=== PATIENT | female | born 1970 | race Caucasian/White ===

== ENCOUNTER → 2017-06-24 | Outpatient (REF) | payer BC | LOC: M LAB REF 16:18 | PROVIDERS: ATTEND Physician Assistant | DX: N39.0 Urinary tract infection, site not specified (principal) ==

== ENCOUNTER → 2017-12-19 | Outpatient (REF) | payer BC ==
[2017-12-19 12:17] LABS: INFLUENZA A AMPLIFICATION NEGATIVE (NEGATIVE); INFLUENZA B AMPLIFICATION NEGATIVE (NEGATIVE)
== END ==
LOC: M LAB REF 10:09
DX: Z11.59 Encounter for screening for other viral diseases (principal)
CPT/HCPCS: 87502

== ENCOUNTER 2018-03-04 12:28 | Emergency (ER) | payer BC | END 2018-03-04 14:21 | disposition home or self-care (01) | LOC: M ED 12:28 | DX: N76.4 Abscess of vulva (principal); Z98.890 Other specified postprocedural states; Z79.899 Other long term (current) drug therapy | CPT/HCPCS: 87210 ==

== ENCOUNTER 2020-09-27 14:01 | Emergency (ER) | payer BC, OTHER ==
[~2020-09-27] VITALS: Ht 152.4 cm; Wt 77.9 kg
[~2020-09-27 14:01] MED LIST: AUGM500T34 PO; BUPR300T92 PO; GABA-843 PO; TRAZ-252 PO
[2020-09-27] MEDS ORDERED: GABA-845 (14:13)
[2020-09-27] MEDS ORDERED: LAMO25TA4 (14:13)
[2020-09-27] MEDS ORDERED: BUPR150T3 (14:13)
[2020-09-27 15:49] LABS: BASO # 0.1 10^3/uL (0.0-0.2); BASO % 0.8 % (0.0-1.0); EOS # 0.1 10^3/uL (0.0-0.5); EOS % 1.3 % (0.0-3.0); HEMATOCRIT 43.4 % (36.0-47.0); LYMPH % 27.7 % (24.0-44.0); MEAN CORPUSCULAR HEMOGLOBIN 28.7 pg (27.0-33.0); MEAN CORPUSCULAR HGB CONC 32.3 g/dl (32.0-36.5); MEAN CORPUSCULAR VOLUME 89.1 fl (80.0-96.0); MONO # 0.5 10^3/uL (0.0-0.8); MONO % 6.5 % (0.0-5.0); NEUTROPHILS # 4.5 10^3/uL (1.5-8.5); NEUTROPHILS % 63.3 % (36.0-66.0); PLATELET COUNT, AUTOMATED 248 10^3/uL (150-450); RED BLOOD COUNT 4.87 10^6/uL (4.00-5.40); WHITE BLOOD COUNT 7.1 10^3/uL (4.0-10.0)
[2020-09-27 16:21] LABS: HCG, SERUM QUALITATIVE NEGATIVE (NEGATIVE)
[2020-09-27 16:22] LABS: BLOOD UREA NITROGEN 8 MG/DL (7-18); CALCIUM LEVEL 8.8 MG/DL (8.5-10.1); CARBON DIOXIDE LEVEL 31 MEQ/L (21-32); CHLORIDE LEVEL 106 MEQ/L (98-107); GLOMERULAR FILTRATION RATE > 60.0 (>58); GLUCOSE, FASTING 100 MG/DL (70-100); POTASSIUM SERUM 4.5 MEQ/L (3.5-5.1); SODIUM LEVEL 139 MEQ/L (136-145)
--- NOTE | 2020-09-27 17:07 | REP ---
INDICATION: abd pain w/ heavy vag bleeding r/o fibroid COMPARISON: None. TECHNIQUE: Transabdominal pelvic ultrasound followed by transvaginal examination for better evaluation of the endometrium and adnexa with color Doppler evaluation of the ovaries. FINDINGS: Bladder is unremarkable and measures . Heterogeneous anteverted myomatous uterus measures 10.0 x 5.6 x 6.1 cm and includes multiple vague fibroids including right lateral fibroid measuring 2.1 cm maximal diameter. The endometrial complex measures 7.5 mm thickness. Few nabothian cysts are identified in the cervix measuring up to 19 mm. Ovaries are not identified. Tubular structure in the right adnexa is poorly/incompletely evaluated but may represent hydrosalpinx. No pelvic fluid. IMPRESSION: 1. Heterogeneous myomatous uterus including 2.1 cm right lateral intramural fibroid. Nabothian cysts measuring up to 19 mm. 2. Possible hydrosalpinx. Ovaries not visualized. <Electronically signed by Alexandr Cano > 09/27/20 [id number]
[2020-09-27 17:26] VITALS: BP 116/71
--- NOTE | 2020-09-28 13:13 | ED PDOC ---
Post-Departure Follow-Up dr whitley faxed formal report of pelvic us for fu Danii Quevedo MD Sep 28, 2020 13:13
== END 2020-09-27 17:29 | disposition home or self-care (01) ==
LOC: M ED 14:01
DX: D25.1 Intramural leiomyoma of uterus (principal); N88.8 Other specified noninflammatory disorders of cervix uteri; F31.9 Bipolar disorder, unspecified; F12.10 Cannabis abuse, uncomplicated

== ENCOUNTER → 2020-10-31 | Outpatient (CLI) | payer OTHER ==
[~2020-10-31] MED LIST changes: +BUPR150T4 PO; +GABA-282 PO; -GABA-843 PO; +GABA-845; +IBUP-1022 PO; +LAMO25TA4 PO; +OXYC1TAB23 PO
== END ==
LOC: M LABSMTC 12:45
PROVIDERS: ATTEND Anesthesiology
DX: Z01.812 Encounter for preprocedural laboratory examination (principal); Z20.822 Contact with and (suspected) exposure to COVID-19

== ENCOUNTER 2020-11-05 09:09 | Day surgery (SDC) | payer OTHER ==
[2020-11-05] VITALS (7 sets, daily range): BP systolic 107–123; BP diastolic 65–76
[~2020-11-05] VITALS: Ht 152.4 cm; Wt 71.2 kg
[~2020-11-05 09:09] MED LIST changes: -IBUP-1022 PO; +LR 1,000 ML IV ONE; -OXYC1TAB23 PO; +ceFAZolin SOD 2 GM in IV 1 EA IV ONE
--- OUTSIDE RECORDS SUMMARY | 2020-11-05 09:15 | CCD ---
Author Author [employer] Organization [employer] [facility] Address Unknown Phone Unavailable Care Team Providers Care Plate Take Out Worker Name Role Phone Noe Ruiz Unavailable PROBLEMS No Information ALLERGIES No Known Allergies ENCOUNTERS from 1970 to 2020-10-26 Encounter Location Date Provider Diagnosis [facility] [address] [place] [phone] Oct, Noe Ruiz IMMUNIZATIONS No Information SOCIAL HISTORY Tobacco Use: Social History Observation Description Date Details (start date - stop date) Never Smoker Sex Assigned At : Social History Observation Description Sex Assigned At Unknown Alcohol Screening: Question Answer Notes Did you have a drink containing alcohol in the past year? No Points 0 Interpretation Negative Tobacco Use: Question Answer Notes Are you a: never smoker REASON FOR REFERRAL No Information VITAL SIGNS No information MEDICATIONS Medication SIG (Take, Route, Frequency, Duration) Notes Start Da te End Date Status Gabapentin 400 MG 1 capsule Orally Once a day Active Lamictal 25 MG 1 tablet Orally Activ e Wellbutrin XL 150 MG 1 tablet in the morning Orally Once a day Active PROCEDURES No Information RESULTS No Results REASON FOR VISIT AUTHORIZATION MEDICAL (GENERAL) HISTORY Type Description Date Surgical History x3 Surgical History cholecystectomy Surgical History appendectomy Hospitalization History childbirth Hospitalization History Suicide attempt/ Impatient Mental he alth Goals Section No Information Health Concerns No Information MEDICAL EQUIPMENT No Information MENTAL STATUS No Information FUNCTIONAL STATUS No Information ASSESSMENTS No Information PLAN OF TREATMENT Next Appt Details Provider Name:Noe Ruiz 2020-10-29 03:40:00 PM, [address] [place] [address], [phone], Provider Name:Noe Ruiz 2020-11-05 12:30:00 AM, [address] [place] [address], [phone], Provider Name:Noe Ruiz, 2020-11-20 10:40:00 AM, [address] [place], [phone], Provider Name:Noe Ruiz, 2020-12-17 11:40:00 AM, [address] [place], [phone], Insurance Providers Payer Name Payer Address Payer Phone Insured Name Patient Relati onship to Insured Coverage Start Date Coverage End Date [facility] CORPORATE CLAIMS DEPT [address] [facility] [phone] ALAINA LUCIA self
--- OUTSIDE RECORDS SUMMARY | 2020-11-05 09:15 | CCD ---
Author Author Real Myriam Ferrer Organization Unknown Address [address] [phone] Phone Care Team Providers Care Harness Builder Name Role Phone Carissa Noble PCP Allergies, Adverse Reactions, Alerts Concept Allergy Name Reaction Severity Onset Date Status Documentation Date Phone Number Npid Taxonomy Code Taxonomy Desc Author Last Name Author Fi rst Name Concept Type 722218 ziprasidone hcl Oversedation 11/26/2017 Active 11/25/19 18 [id number] Psychiatric/Mental Health Jaret Diaz RX NORM Problem List Concept Problem Description Status Start Date Created Date Resolv ed Date Snomed Code F33.2 Major Depressive Disorder, Recurrent episode, Severe A ctive 12/30/2018 12/30/2018 F31.81 Bipolar II Disorder Active 10/02/2015 10/02/2015 F41.1 Generalized Anxiety Disorder Active 03/02/2018 03/02/2018 Medications Rx Norm Medication Route Route Concept Start Date Stop Date Dosage Matheus quency Duration Formula Strength Dosage Form Dosage Form Code Dosage Description Medication Id Account Npid Author First Name Author Last Name Taxonomy Code Taxonomy Desc Phone Number [id number] gabapentin by mouth [id number] 07/24/2020 11/03/2020 three times a day 30 400 mg capsule 24242 [phone] Carissa Noble [id number] Nurse Practitioner [phone] [id number] Wellbutrin XL by mouth [id number] 07/24/2020 11/03/2020 every morni ng 30 150 mg tablet extended release 24 hr 17407 [id number] Carissa Noble [id number] Nurse Practitioner [phone] Social History Social History Element Description Concept Effective Date Smoking Status Unknown if ever smoked [id number] Immunizations No Data in Section Vital Signs Encounter Date Height Ins Weight Lbs Bmi Bp Systolic Bp Diastoli c Oxygen Saturation Respiration Rate Pulse Rate Body Temp Head Circumference Heigh t Lying 10/09/2020 0.00 0.00 0.00 0 0 0.00 0 0 0.00 0.0 0.0 0 Procedures Date Concept Id Description Targeted Site Concept Targeted Site Concept Type 10/09/2020 19527-19 [facility] Telemed E/M Lvl 3--Est pt CPT 10/09/2020 06945-61-[id number] Psychotherapy ADD ON - 30 Minutes CPT Patient has no history of implantable de vices Encounters Encounter Start Date End Date Encounter Type Description Diagnosis Di agnosis Desc Location Author First Name Author Last Name Npid Taxonomy Cod e Taxonomy Desc Phone Number Location Addr1 Location Addr2 Location [facility] Location Sta te Location Zip [id number] 10/09/2020 10/09/2020 73422-73 [facility] Telemed E/M Lvl 3--Est p t F33.2 Major depressv disorder, recurrentsevere w/o psych features [facility] Carissa [id number] Nurse Practitioner [phone] [address] [place] [phone] Plan of Treatment No Data in Section Lab Results No Data in Section Instructions No Data in Section Functional Cognitive Status No Data in Section Insurance Providers Insurance Id Policy Effective Date Policy Thru Date [employer] Michel patel [id number] 2019 [place] muñoz Plan
--- OUTSIDE RECORDS SUMMARY | 2020-11-05 09:15 | CCD ---
Author Author Real Myriam Hickmanricia Organization Unknown Address [address] [phone] Phone Care Team Providers Care Quality Intern Name Role Phone Carissa Noble PCP Allergies, Adverse Reactions, Alerts Concept Allergy Name Reaction Severity Onset Date Status Documentation Date Phone Number Npid Taxonomy Code Taxonomy Desc Author Last Name Author Fi rst Name Concept Type [id number] ziprasidone hcl Oversedation 11/26/2017 Active 11/25/19 18 [id number] Psychiatric/Mental Health Jaret Diaz RX NORM Problem [...] Name Taxonomy Code Taxonomy Desc Phone Number [phone] Lamictal by mouth [id number] 09/04/2020 10/04/2020 once a day 30 2 5 mg tablet 94369 [id number] [phone] Carissa Noble [id number] Nurse P jennifer [phone] 879803 gabapentin by mouth [id number] 07/24/2020 11/03/2020 three times a day 30 400 mg capsule 67484 [id number] Carissa Noble [id number] Nurse Practitioner [phone] [id number] Wellbutrin XL by mouth [id number] 07/24/2020 11/03/2020 every morni ng 30 150 mg tablet extended release 24 hr 29598 [id number] [id number] Carissa Noble [id number] Nurse Practitioner [phone] Social History Social History Element Description Concept Effective Date Smoking Status Unknown if ever smoked [id number] Immunizations No Data in Section Vital Signs Encounter Date Height Ins Weight Lbs Bmi Bp Systolic Bp Diastoli c Oxygen Saturation Respiration Rate Pulse Rate Body Temp Head Circumference Heigh t Lying 09/04/2020 0.00 0.00 0.00 0 0 0.00 0 0 0.00 0.0 0.0 0 Procedures Date Concept Id Description Targeted Site Concept Targeted Site Concept Type 09/04/2020 05152 E/M Level 3 - Established Patient CPT 09/04/2020 [id number]-[id number] Psychotherapy ADD ON - 30 Minutes CPT Patient has no history of implantable de vices Encounters Encounter Start Date End Date Encounter Type Description Diagnosis Di agnosis Desc Location Author First Name Author Last Name Npid Taxonomy Cod e Taxonomy Desc Phone Number Location Addr1 Location Addr2 Location City Location Sta te Location [facility] [id number] 09/04/2020 09/04/2020 99613 E/M Level 3 - Established Pa tient F33.2 Major depressv disorder, recurrentsevere w/o psych features [facility] [place] Carissa [phone] [id number] Nurse Practitioner [phone] [address] [phone] Plan of Treatment No Data in Section Lab Results No Data in Section Instructions No Data in Section Functional Cognitive Status No Data in Section Insurance Providers Insurance Id Policy Effective Date Policy Thru Date Company [employer] [id number] 2019 [place] muñoz Plan
--- OUTSIDE RECORDS SUMMARY | 2020-11-05 09:15 | CCD ---
Author Author [employer] [facility] Organization [employer] Address Unknown Phone Unavailable Care Team Providers Care Bank Sales And Service Manager Name Role Phone Noe Ruiz Unavailable PROBLEMS No Information ALLERGIES No Known Allergies ENCOUNTERS from 1972 to 2020-11-03 Encounter Location Date Provider Diagnosis [facility] [address] [place] [address] Oct, Noe Ruiz Irregular bleeding N 92.6 IMMUNIZATIONS No Information SOCIAL HISTORY Tobacco Use: [...] REASON FOR REFERRAL No Information VITAL SIGNS Weight 161.2 lbs Oct, Weight-kg 73.12 kg Oct, Height 60 in Oct, BMI 31.48 kg/m2 Oct, Blood pressure systolic 110 mm Hg Oct, Blood pressure diastolic 72 mm Hg Oct, MEDICATIONS Medication SIG (Take, Route, Frequency, Duration) Notes Start Da te End Date Status Wellbutrin XL 150 MG 1 tablet in the morning Orally Once a day Active Lamictal 25 MG 1 tablet Orally Activ e Gabapentin 400 MG 1 capsule Orally Once a day Active PROCEDURES No Information RESULTS No Results REASON FOR VISIT ER FU FOR FIBRIODS MEDICAL (GENERAL) HISTORY Type Description Date Surgical History x3 Surgical History cholecystectomy Surgical History appendectomy Hospitalization History childbirth Hospitalization History Suicide attempt/ Impatient Mental he alth Goals Section No Information Health Concerns No Information MEDICAL EQUIPMENT No Information MENTAL STATUS No Information FUNCTIONAL STATUS No Information ASSESSMENTS Encounter Date Diagnosis Assessment Notes Treatment Notes Treatm ent Clinical Notes Oct, Irregular bleeding (ICD-10 - N92.6) PLAN OF TREATMENT Next Appt Details Provider Name:Noe Ruiz, 2020-11-05 10:30:00 AM, [address] [place] [address], [phone], Provider Name:Noe Ruiz, 2020-11-20 10:40:00 AM, [address] [place] [address], [phone], Provider Name:Noe Ruiz, 2020-12-17 11:40:00 AM, [address] [place] [address], [phone], Insurance Providers Payer Name Payer Address Payer Phone Insured Name Patient Relati onship to Insured Coverage Start Date Coverage End Date [facility] CORPORATE CLAIMS DEPT [address] [facility] [phone] ALAINA LUCIA self
--- OUTSIDE RECORDS SUMMARY | 2020-11-05 09:15 | CCD ---
Author Author [employer] Organization [employer] Address Unknown Phone Unavailable Care Team Providers Care Autotransfusionist Name Role Phone Noe Ruiz Unavailable PROBLEMS No Information ALLERGIES No Known Allergies ENCOUNTERS from 1972 to 2020-11-03 Encounter Location Date Provider Diagnosis [facility] [address] [place] [address] Oct, Noe Ruiz Abnormal menstrual p eriods N92.6 IMMUNIZATIONS No Information SOCIAL HISTORY Tobacco Use: [...] FOR REFERRAL No Information VITAL SIGNS Weight 161 lbs Oct, Weight-kg 73.03 kg Oct, Height 60 in Oct, BMI 31.44 kg/m2 Oct, Blood pressure systolic 114 mm Hg Oct, Blood pressure diastolic 70 mm Hg Oct, MEDICATIONS Medication SIG (Take, Route, Frequency, Duration) Notes Start Da te End Date Status Wellbutrin XL 150 MG 1 tablet in the morning Orally Once a day Active Lamictal 25 MG 1 tablet Orally Activ e Gabapentin 400 MG 1 capsule Orally Once a day Active PROCEDURES No Information RESULTS No Results REASON FOR VISIT PRE OP SURG 11/05/20 [facility] MEDICAL (GENERAL) HISTORY Type Description Date Surgical History x3 Surgical History cholecystectomy Surgical History appendectomy Hospitalization History childbirth Hospitalization History Suicide attempt/ Impatient Mental he alth Goals Section No Information Health Concerns No Information MEDICAL EQUIPMENT No Information MENTAL STATUS No Information FUNCTIONAL STATUS No Information ASSESSMENTS Encounter Date Diagnosis Assessment Notes Treatment Notes Treatm ent Clinical Notes Oct, Abnormal menstrual periods (ICD-10 - N92.6) PLAN OF TREATMENT Next Appt Details Provider Name:Noe Ruiz, 2020-11-05 10:30:00 AM, [address] [place] [address], [phone], Provider Name:Noe Ruiz 2020-11-20 10:40:00 AM, [address] [place] [address], [phone], Provider Name:Noe Ruiz 2020-12-17 11:40:00 AM, [address] [place] [address], [phone], Insurance Providers Payer Name Payer Address Payer Phone Insured Name Patient Relati onship to Insured Coverage Start Date Coverage End Date [facility] CORPORATE CLAIMS DEPT [address] [facility] [phone] ALAINA LUCIA self
--- OUTSIDE RECORDS SUMMARY | 2020-11-05 09:15 | CCD ---
Author Author [facility] Organization [facility] Address Unknown Phone Unavailable Care Team Providers Care Dish Stacker Name Role Phone Chancellor, C Joe Unavailable Unavailable Jaret, C Joe Unavailable Unavailable Chancellor, C Joe Unavailable Unavailable Jaret, C Joe Unavailable Unavailable Chancellor, C Joe Unavailable Unavailable Chancellor, C Joe Unavailable Unavailable Jaret, C Joe Unavailable Unavailable JONN, H CARISSA GRINDER [employer] Unavailable Unavailable JONN, H CARISSA GRINDER [employer] Unavailable Unavailable JONN, H CARISSA GRINDER [employer] Unavailable Unavailable JONN, H CARISSA [employer]INDER [employer] Unavailable Unavailable JONN, H CARISSA [employer]ER [employer] Unavailable Unavailable JONN, H CARISSA GRINDER [employer] Unavailable Unavailable JONN, H CARISSA GRINDER [employer] Unavailable Unavailable Re-disclosure Warning The records that you are about to access may contain information from federally-assisted alcohol or drug abuse programs. If such information is present, then the following federally mandated warning applies: This information has been disclosed to you from records protected by federal confidentiality rules (42 CFR part 2). The federal rules prohibit you from making any further disclosure of this information unless further disclosure is expressly permitted by the written consent of the person to whom it pertains or as otherwise permitted by 42 CFR part 2. A general authorization for the release of medical or other information is NOT sufficient for this purpose. The Federal rules restrict any use of the information to criminally investigate or prosecute any alcohol or drug abuse patient.The records that you are about to access may contain highly sensitive health information, the redisclosure of which is protected by Article 27-F of the [facility] Public Health law. If you continue you may have access to information: Regarding HIV / AIDS; Provided by facilities licensed or operated by the [facility] Office of Mental Health; or Provided by the [facility] Office for People With Developmental Disabilities. If such information is present, then the following [facility] mandated warning applies: This information has been disclosed to you from confidential records which are protected by state law. State law prohibits you from making any further disclosure of this information without the specific written consent of the person to whom it pertains, or as otherwise permitted by law. Any unauthorized further disclosure in violation of state law may result in a fine or [place] [facility] sentence or both. A general authorization for the release of medical or other information is NOT sufficient authorization for further disc losure. Allergies and Adverse Reactions Type Description Substance Reaction Status Data Source(s ) Propensity to adverse reactions to substance ziprasidone hcl ziprasidone 20 MG Oral Capsule Active [facility] ([facility]) Encounters Encounter Providers Location Date Indications Data Source(s ) ( 20ESGYN) WCenter 20 Min Est Aerial Photograph Interpreter [address] [place] [address] 10/29/2020 12:00:00 AM EST eCW1 ([facility]) [place] [address] [facility] [place] [address] 10/25/2020 12:00:00 AM EST eCW1 ([facility]) Outpatient [address] [facility] [id number] 10/24/2020 12:00:00 AM EST eCW1 ([facility]) Outpatient Attender: CARISSA LUNSFORD NP [facility] Bhavin muñoz 10/09/2020 01:30:00 AM EST - 10/09/2020 01:30:00 AM EST [facility] ([facility]) Attender: CARISSA LUNSFORD NP 10/09/2020 12:00:00 AM EST [facility] ([facility]) Outpatient Attender: CARISSA LUNSFORD NP [facility] Bhavin muñoz 09/04/2020 04:00:00 AM EST - 09/04/2020 04:00:00 AM EST [facility] ([facility]) Attender: CARISSA LUNSFORD NP 09/04/2020 12:00:00 AM EST [facility] ([facility]) Outpatient Attender: CARISSA LUNSFORD NP [facility] Bhavin muñoz 07/24/2020 05:30:00 AM EST - 07/24/2020 05:30:00 AM EST [facility] ([facility]) Attender: CARISSA LUNSFORD NP 07/24/2020 12:00:00 AM EST [facility] ([facility]) Attender: ACRISSA LUNSFORD NP 07/05/2020 12:00:00 AM EDT [facility] ([facility]) Outpatient Attender: CARISSA LUNSFORD NP [facility] Bhavin muñoz 07/04/2020 03:00:00 AM EDT - 07/04/2020 03:00:00 AM EDT [facility] ([facility]) Outpatient Attender: CARISSA LUNSFORD NP [facility] Bhavin muñoz 05/31/2020 08:30:00 AM EDT - 05/31/2020 08:30:00 AM EDT [facility] ([facility]) Attender: CARISSA LUNSFORD NP 05/31/2020 12:00:00 AM EDT [facility] ([facility]) Outpatient Attender: CARISSA LUNSFORD NP [facility] Bhavin muñoz 03/20/2020 03:30:00 AM EDT - 03/20/2020 03:30:00 AM EDT [facility] ([facility]) Attender: CARISSA LUNSFORD NP 03/20/2020 12:00:00 AM EDT [facility] ([facility]) Outpatient Attender: CARISSA LUNSFORD NP [facility] 02/07/2020 04:30:00 AM EDT - 02/07/2020 04:30:00 AM EDT [facility] ([facility]) Attender: CARISSA LUNSFORD NP 02/07/2020 12:00:00 AM EDT [facility] ([facility]) Outpatient Attender: Joe Raygoza [facility] 0 11/24/2019 04:00:00 AM EST - 11/24/2019 04:00:00 AM EST [facility]) Attender: Joe Raygoza 11/24/2019 12:00:00 AM EST [facility] ([facility]) Outpatient Attender: Joe Raygoza [facility] 0 10/06/2019 04:00:00 AM EST - 10/06/2019 04:00:00 AM EST [facility] ([facility]) Attender: Joe Raygoza 10/06/2019 12:00:00 AM EST [facility] ([facility]) Outpatient Attender: Joe Raygoza [facility] 1 01:00:00 AM EST - 09/19/2019 01:00:00 AM EST [facility] ([facility]) Attender: Joe Raygoza 09/19/2019 12:00:00 AM EST [facility] ([facility]) Functional Status Medications Medication Brand Name Start Date Product Form Dose Route Admi nistrative Instructions Pharmacy Instructions Status Indications Reaction Description Data Source(s) lamotrigine 25 MG Oral Tablet [Lamictal] Lamictal 09/04/2020 12 :00:00 AM EST 25 mg by mouth completed [id number] Lamictal by mouth [id number] 09/04/2020 10/04/2020 once a day 30 25 mg tablet 52437 [id number] Marylou Lunsford [id number] Nurse Practitioner [facility] ( [facility]) gabapentin 400 MG Oral Capsule gabapentin 07/24/2020 12:00:00 AM EST 400 mg by mouth completed [id number] gabapentin by mouth [id number] 07/2411/03/2020 three times a day 30 400 mg capsule 93231 [id number] [phone] [id number] Carissa Lunsford [id number] Nurse Practitioner [facility] ([facility]) 24 HR Bupropion Hydrochloride 150 MG Extended Release Oral Tablet [Wellbutrin] Wellbutrin XL 07/24/2020 12:00:00 AM EST 150 mg by mouth co mpleted [id number] Wellbutrin XL by mouth [id number] 07/24/2020 11/03/2020 every morning 30 150 mg tablet extended release 24 hr 71955 [id number] Carissa Lunsford [id number] Nurse Practitioner [facility] ([facility]) 24 HR Bupropion Hydrochloride 150 MG Extended Release Oral Tablet [Wellbutrin] Wellbutrin XL 07/24/2020 12:00:00 AM EST 150 mg by mouth co mpleted [id number] Wellbutrin XL by mouth [id number] 07/24/2020 11/03/2020 every morning 30 150 mg tablet extended release 24 hr 65272 [id number] Carissa Lunsford [id number] Nurse Practitioner [facility] ([facility]) gabapentin 400 MG Oral Capsule gabapentin 07/24/2020 12:00:00 AM EST 400 mg by mouth completed [id number] gabapentin by mouth [id number] 07/2411/03/2020 three times a day 30 400 mg capsule 53525 [id number] [phone] [id number] Carissa Lunsford [id number] Nurse Practitioner [facility] ([facility]) 24 HR Bupropion Hydrochloride 150 MG Extended Release Oral T ablet BUPROPION HCL 05/11/2020 12:00:00 AM EDT tablet extended release 24 hr 30 TAKE ONE TABLET BY MOUTH EVERY MORNING TAKE ONE TABLET BY MOUTH EVERY MORNING SOLD: 05/12/2020 [facility] 0.5 mg 05/11/2020 12:00:00 AM EDT tablet 30 TAKE ONE TABLET BY MOUTH AT BEDTIME TAKE ONE TABLET BY MOUTH AT BEDTIME SOLD: 05/12/2020 [facility] 400 mg 05/11/2020 12:00:00 AM EDT capsule 90 TAKE ONE CAPSULE BY MOUTH THREE TIMES A DAY TAKE ONE CAPSULE BY MOUTH THREE TIMES A DAY SOLD: 05/12/2020 [facility] 10 mg 05/11/2020 12:00:00 AM EDT capsule 30 TAKE ONE CAPSULE BY MOUTH AT BEDTIME TAKE ONE CAPSULE BY MOUTH AT BEDTIME SOLD: 05/12/2020 [facility] 24 HR Bupropion Hydrochloride 150 MG Extended Release Oral Tablet [Wellbutrin] Wellbutrin XL 05/09/2020 12:00:00 AM EDT 150 mg by mouth [facility] [id number] Wellbutrin XL by mouth [id number] 05/09/2020 07/08/2020 every morning 30 150 mg tablet extended release 24 hr 53874 [id number] Carissa Lunsford [id number] Nurse Practitioner [facility] ([facility]) Risperidone 0.5 MG Oral Tablet [Risperdal] Risperdal 05/09 12:00:00 AM EDT 0.5 mg by mouth completed [id number] Risperdal by mout h [id number] 05/09/2020 06/30/2020 at bedtime 30 0.5 mg tablet 52013 [id number] [id number] Carissa Lunsford [id number] Nurse Practitioner [facility] ([facility]) 400 mg 03/21/2020 12:00:00 AM EDT capsule 90 TAKE ONE CAPSULE BY MOUTH THREE TIMES A DAY TAKE ONE CAPSULE BY MOUTH THREE TIMES A DAY SOLD: 03/31/2020 [facility] 300 mg 03/21/2020 12:00:00 AM EDT tablet extended release 24 hr 30 TAKE ONE TABLET BY MOUTH EVERY MORNING TAKE ONE TABLET BY MOUTH EVERY MORNING SOLD: 03/31/2020 [facility] Melatonin 10 MG Oral Tablet melatonin 02/07/2020 12:00:00 AM EDT 10 mg by mouth completed [id number] melatonin by mouth [id number] 201905/19/2020 at bedtime 30 10 mg tablet 03694 793039 [id number] Carissa Lunsford [id number] Nurse Practitioner [facility] ([facility]) Melatonin 10 MG Oral Tablet melatonin 02/07/2020 12:00:00 AM EDT 10 mg by mouth completed [id number] melatonin by mouth [id number] 201907/08/2020 at bedtime 30 10 mg tablet 23534 120108 [id number] Carissa Lunsford [id number] Nurse Practitioner [facility] ([facility]) Melatonin 10 MG Oral Tablet melatonin 02/07/2020 12:00:00 AM EDT 10 mg by mouth completed [id number] melatonin by mouth [id number] 201904/07/2020 at bedtime 30 10 mg tablet 81415 311861 [id number] Carissa Lunsford [id number] Nurse Practitioner [facility] ([facility]) Melatonin 10 MG Oral Tablet melatonin 02/07/2020 12:00:00 AM EDT 10 mg by mouth completed [id number] melatonin by mouth [id number] 201907/08/2020 at bedtime 30 10 mg tablet 59391 884581 [id number] Carissa Lunsford [id number] Nurse Practitioner [facility] ([facility]) 400 mg 01/05/2020 12:00:00 AM EDT capsule 90 TAKE ONE CAPSULE BY MOUTH THREE TIMES A DAY TAKE ONE CAPSULE BY MOUTH THREE TIMES A DAY SOLD: 01/12/2020 [facility] 300 mg 01/05/2020 12:00:00 AM EDT tablet extended release 24 hr 30 TAKE ONE TABLET BY MOUTH EVERY MORNING TAKE ONE TABLET BY MOUTH EVERY MORNING SOLD: 01/12/2020 [facility] 5 mg 01/05/2020 12:00:00 AM EDT tablet 30 TAKE ONE TABLET BY MOUTH EVERY MORNING TAKE ONE TABLET BY MOUTH EVERY MORNING SOLD: 01/12/2020 [facility] 300 mg 12/17/2019 12:00:00 AM EDT tablet extended release 24 hr 30 TAKE ONE TABLET BY MOUTH EVERY MORNING TAKE ONE TABLET BY MOUTH EVERY MORNING SOLD: 12/17/2019 [facility] 400 mg 11/25/2019 12:00:00 AM EST capsule 90 TAKE ONE CAPSULE BY MOUTH THREE TIMES A DAY TAKE ONE CAPSULE BY MOUTH THREE TIMES A DAY SOLD: 12/17/2019 [facility] 5 mg 11/25/2019 12:00:00 AM EST tablet 30 TAKE ONE TABLET BY MOUTH EVERY MORNING TAKE ONE TABLET BY MOUTH EVERY MORNING SOLD: 12/17/2019 [facility] aripiprazole 5 MG Oral Tablet [Abilify] Abilify 11/24/2019 12: 00:00 AM EST 5 mg by mouth completed [id number] Abilify by mouth [id number] 11/24/2019 03/20/2020 every morning 30 5 mg tablet 59062 [id number] [id number] Carissa Lunsford [id number] Nurse Practitioner [facility] ([facility]) 24 HR Bupropion Hydrochloride 300 MG Extended Release Oral T ablet bupropion HCl 11/24/2019 12:00:00 AM EST 300 mg completed [id number] bupropion HCl 11/24/2019 every morning 300 mg tablet extended release 24 hr 97597 471806 [id number] Carissa Lunsford [id number] Nurse Practitioner [facility] ([facility]) gabapentin 400 MG Oral Capsule gabapentin 11/24/2019 12:00:00 AM EST 400 mg by mouth completed [id number] gabapentin by mouth [id number] 11/2305/19/2020 three times a day 30 400 mg capsule 25643 [id number] [id number] Carissa Lunsford [id number] Nurse Practitioner [facility] ([facility]) 24 HR Bupropion Hydrochloride 300 MG Extended Release Oral T ablet bupropion HCl 11/24/2019 12:00:00 AM EST 300 mg completed [id number] bupropion HCl 11/24/2019 every morning 300 mg tablet extended release 24 hr 11913 225157 [id number] Carissa Lunsford [id number] Nurse Practitioner [facility] ([facility]) aripiprazole 5 MG Oral Tablet [Abilify] Abilify 11/24/2019 12: 00:00 AM EST 5 mg by mouth completed [id number] Abilify by mouth [id number] 11/24/2019 04/07/2020 every morning 30 5 mg tablet 78446 794135 [id number] Carissa Lunsford [id number] Nurse Practitioner [facility] ([facility]) gabapentin 400 MG Oral Capsule gabapentin 11/24/2019 12:00:00 AM EST 400 mg by mouth completed [id number] gabapentin by mouth [id number] 11/2304/07/2020 three times a day 30 400 mg capsule 60496 [id number] [phone] [id number] Carissa Lunsford [id number] Nurse Practitioner [facility] ([facility]) aripiprazole 5 MG Oral Tablet [Abilify] Abilify 11/24/2019 12: 00:00 AM EST 5 mg by mouth completed [id number] Abilify by mouth [id number] 11/24/2019 01/23/2020 every morning 30 5 mg tablet 22726 [id number] Joe Raygoza [id number] Psychiatric/Mental Health [facility] ([facility]) 12 HR Bupropion Hydrochloride 150 MG Extended Release Oral Tablet [Wellbutrin] Wellbutrin SR 09/23/2018 12:00:00 AM EST 150 mg by mouth [facility] [id number] Wellbutrin SR by mouth [id number] 09/23/2018 09/10/2019 twice a day 30 150 mg tablet sustained-release 12 hr 68919 [id number] 4 Joe Chancellor [id number] Psychiatric/Mental Health [facility] ([facility]) Insurance Providers Payer name Policy type / Coverage type Policy ID Covered libertarian ID Covered libertarian's relationship to shah Policy Shah Plan Information YOSELIN [id number] SP [id number] [employer]OSEL[employer] CARE [place] O [id number] S [id number] YOSELIN [id number] SP [id number] [employer] [place] PPO [id number] SP [id number] [place] P[place] 302/307 [id number] SP [id number] Medicaid [place] Medicaid Self SELF PAY UNAVAILABLE SP UNAVAILA BLE MEDICAID [id number] SP [id number] MEDICAID S [id number] S [id number] [facility] P [id number] S [id number] Problems, Conditions, and Diagnoses Code Display Name Description Problem Type Effective Dates Data Source(s) F41.1 Generalized anxiety disorder Generalized Anxiety Disor chito Condition 10/09/2020 12:00:00 AM EST [facility] ([facility]) F31.81 Bipolar II disorder Bipolar II Disorder Condition 0 10/09/2020 12:00:00 AM EST [facility] ([facility]) F33.2 Major depressive disorder, 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 Major Depressive Disorder, Recurrent episode, Severe Condition 0 10/09/2020 12:00:00 AM EST [facility] ([facility]) Surgeries/Procedures Procedure Description Date Indications Data Source(s) MHC Telemed E/M Lvl 3--Est pt 10/09/2020 12:00:00 AM EST - 10/09/2020 12:00:00 AM EST [facility] ([facility]) Psychotherapy ADD ON - 30 Minutes 10/09/2020 12:00:00 AM EST [facility] ([facility]) MHC Telemed E/M Lvl 3--Est pt 10/09/2020 12:00:[address] [facility] ([facility]) OFFICE OUTPATIENT VISIT 15 MINUTES 09/04 12:00:00 AM EST - 09/04/2020 12:00:00 AM EST [facility] ([facility]) Psychotherapy ADD ON - 30 Minutes 09/04/2020 12:00:00 AM EST [facility] ([facility]) OFFICE OUTPATIENT VISIT 15 MINUTES 09/04/2020 12:00:00 AM EST [facility] ([facility]) OFFICE OUTPATIENT VISIT 15 MINUTES 07/24 12:00:00 AM EST - 07/24/2020 12:00:00 AM EST [facility] ([facility]) Psychotherapy ADD ON - 45 Min 07/24/2020 12:00:[address] [facility] ([facility]) OFFICE OUTPATIENT VISIT 15 MINUTES 07/24/2020 12:00:00 AM EST [facility] ([facility]) MHC Telemed E/M Lvl 3--Est pt 07/05/2020 12:00:00 AM EDT - 07/05/2020 12:00:00 AM EDT [facility] ([facility]) MHC Telemed E/M Lvl 3--Est pt 07/04/2020 12:00:00 AM E DT [facility] ([facility]) MHC Telemed E/M Lvl 3--Est pt 05/31/2020 12:00:00 AM EDT - 05/31/2020 12:00:00 AM EDT [facility] ([facility]) MHC Telemed E/M Lvl 3--Est pt 05/31/2020 12:00:00 AM E DT [facility] ([facility]) MHC Telemed E/M Lvl 3--Est pt 03/20/2020 12:00:00 AM EDT - 03/20/2020 12:00:00 AM EDT [facility] ([facility]) Psychotherapy ADD ON - 30 Minutes 03/20/2020 12:00:00 AM EDT [facility] ([facility]) MHC Telemed E/M Lvl 3--Est pt 03/20/2020 12:00:00 AM E DT [facility] ([facility]) MHC Telemed E/M Lvl 3--Est pt 02/07/2020 12:00:00 AM EDT - 02/07/2020 12:00:00 AM EDT [facility] ([facility]) MHC Telemed E/M Lvl 3--Est pt 02/07/2020 12:00:00 AM E DT [facility] ([facility]) OFFICE OUTPATIENT VISIT 10 MINUTES 11/23 12:00:00 AM EST - 11/24/2019 12:00:00 AM EST [facility] ([facility]) OFFICE OUTPATIENT VISIT 10 MINUTES 11/24/2019 12:00:00 AM EST [facility] ([facility]) OFFICE OUTPATIENT VISIT 10 MINUTES 10/06 12:00:00 AM EST - 10/06/2019 12:00:00 AM EST [facility] ([facility]) OFFICE OUTPATIENT VISIT 10 MINUTES 10/06/2019 12:00:00 AM EST [facility] ([facility]) OFFICE OUTPATIENT VISIT 10 MINUTES 09/19 12:00:00 AM EST - 09/19/2019 12:00:00 AM EST [facility] ([facility]) OFFICE OUTPATIENT VISIT 10 MINUTES 09/19/2019 12:00:00 AM EST [facility] ([facility]) Results ID Date Data Source [id number] 10/31/2020 12:00:00 PM EST [facility] Name Value Range Interpretation Code Description Data Jenn rce(s) Supporting Document(s) SARS coronavirus 2 RNA Not Detected [facility] [place] This lab was ordered by [facility] and reported by [facility]. Procedure Social History Code Duration Value Status Description Data Source(s ) Smoking 10/29/2020 12:00:00 AM EST Never Smoker completed Never S moker eCW1 ([facility]) Smoking 10/29/2020 12:00:00 AM EST Never Smoker completed Never S moker eCW1 ([facility]) Smoking 10/24/2020 12:00:00 AM EST Never Smoker completed Never S moker eCW1 ([facility]) Smoking 10/09/2020 12:00:00 AM EST Unknown if ever smoked comp leted Unknown if ever smoked [facility] ([facility]) Smoking 09/04/2020 12:00:00 AM EST Unknown if ever smoked comp leted Unknown if ever smoked [facility] ([facility]) Smoking 07/24/2020 12:00:00 AM EST Unknown if ever smoked comp leted Unknown if ever smoked [facility] ([facility]) Smoking 07/05/2020 12:00:00 AM EDT Unknown if ever smoked comp leted Unknown if ever smoked [facility] ([facility]) Smoking 05/31/2020 12:00:00 AM EDT Unknown if ever smoked comp leted Unknown if ever smoked [facility] ([facility]) Smoking 03/20/2020 12:00:00 AM EDT Unknown if ever smoked comp leted Unknown if ever smoked [facility] ([facility]) Smoking 02/07/2020 12:00:00 AM EDT Unknown if ever smoked comp leted Unknown if ever smoked [facility] ([facility]) Smoking 11/24/2019 12:00:00 AM EST Unknown if ever smoked comp leted Unknown if ever smoked [facility] ([facility]) Smoking 10/06/2019 12:00:00 AM EST Unknown if ever smoked comp leted Unknown if ever smoked [facility] ([facility]) Smoking 09/19/2019 12:00:00 AM EST Unknown if ever smoked comp leted Unknown if ever smoked [facility] ([facility]) Vital Signs ID Date Data Source UNK Name Value Range Interpretation Code Description Data Source(s) Diastolic blood pressure 70 mm[Hg] 70 mm[Hg] eCW1 ([facility]) Systolic blood pressure 114 mm[Hg] 114 mm[Hg] e 1 ([facility]) Body mass index (BMI) [Ratio] 31.44 kg/m2 31.44 kg/m2 W1 ([facility]) Body height 60 [in_i] 60 [in_i] eCW1 ([facility]) Body weight 73.03 kg 73.03 kg W1 ([facility]) Body weight 161 [lb_av] 161 [lb_av] eCW1 ([facility]) Diastolic blood pressure 72 mm[Hg] 72 mm[Hg] eCW1 ([facility]) Systolic blood pressure 110 mm[Hg] 110 mm[Hg] e CW1 ([facility]) Body mass index (BMI) [Ratio] 31.48 kg/m2 31.48 kg/m2 W1 ([facility]) Body height 60 [in_i] 60 [in_i] eCW1 ([facility]) Body weight 73.12 kg 73.12 kg eCW1 ([facility]) Body weight 161.2 [lb_av] 161.2 [lb_av] eCW1 ([facility]) Diastolic blood pressure 0 mm[Hg] Normal (applies to non-numeric results) 0 mm[Hg] [facility] ([facility]) Systolic blood pressure 0 mm[Hg] Normal (applies t o non-numeric results) 0 mm[Hg] [facility] ([facility]) Body mass index (BMI) [Ratio] 0.00 kg/m2 No rmal (applies to non-numeric results) 0.00 kg/m2 [facility] ([facility]) Body weight Measured 0.00 lbs Normal (applies to n on-numeric results) 0.00 lbs [facility] ([facility]) Body height 0.00 in Normal (applies to non-numeric resu lts) 0.00 in [facility] ([facility]) Diastolic blood pressure 0 mm[Hg] Normal (applies to non-numeric results) 0 mm[Hg] [facility] ([facility]) Systolic blood pressure 0 mm[Hg] Normal (applies t o non-numeric results) 0 mm[Hg] [facility] ([facility]) Body mass index (BMI) [Ratio] 0.00 kg/m2 No rmal (applies to non-numeric results) 0.00 kg/m2 [facility] ([facility]) Body weight Measured 0.00 lbs Normal (applies to n on-numeric results) 0.00 lbs [facility] ([facility]) Body height 0.00 in Normal (applies to non-numeric resu lts) 0.00 in [facility] ([facility]) Diastolic blood pressure 0 mm[Hg] Normal (applies to non-numeric results) 0 mm[Hg] [facility] ([facility]) Systolic blood pressure 0 mm[Hg] Normal (applies t o non-numeric results) 0 mm[Hg] [facility] ([facility]) Body mass index (BMI) [Ratio] 0.00 kg/m2 No rmal (applies to non-numeric results) 0.00 kg/m2 [facility] ([facility]) Body weight Measured 0.00 lbs Normal (applies to n on-numeric results) 0.00 lbs [facility] ([facility]) Body height 0.00 in Normal (applies to non-numeric resu lts) 0.00 in [facility] ([facility]) Diastolic blood pressure 0 mm[Hg] Normal (applies to non-numeric results) 0 mm[Hg] [facility] ([facility]) Systolic blood pressure 0 mm[Hg] Normal (applies t o non-numeric results) 0 mm[Hg] [facility] ([facility]) Body mass index (BMI) [Ratio] 0.00 kg/m2 No rmal (applies to non-numeric results) 0.00 kg/m2 [facility] ([facility]) Body weight Measured 0.00 lbs Normal (applies to n on-numeric results) 0.00 lbs [facility] ([facility]) Body height 0.00 in Normal (applies to non-numeric resu lts) 0.00 in [facility] ([facility]) Diastolic blood pressure 0 mm[Hg] Normal (applies to non-numeric results) 0 mm[Hg] [facility] ([facility]) Systolic blood pressure 0 mm[Hg] Normal (applies t o non-numeric results) 0 mm[Hg] [facility] ([facility]) Body mass index (BMI) [Ratio] 0.00 kg/m2 No rmal (applies to non-numeric results) 0.00 kg/m2 [facility] ([facility]) Body weight Measured 0.00 lbs Normal (applies to n on-numeric results) 0.00 lbs [facility] ([facility]) Body height 0.00 in Normal (applies to non-numeric resu lts) 0.00 in [facility] ([facility]) Diastolic blood pressure 0 mm[Hg] Normal (applies to non-numeric results) 0 mm[Hg] [facility] ([facility]) Systolic blood pressure 0 mm[Hg] Normal (applies t o non-numeric results) 0 mm[Hg] [facility] ([facility]) Body mass index (BMI) [Ratio] 0.00 kg/m2 No rmal (applies to non-numeric results) 0.00 kg/m2 [facility] ([facility]) Body weight Measured 0.00 lbs Normal (applies to n on-numeric results) 0.00 lbs [facility] ([facility]) Body height 0.00 in Normal (applies to non-numeric resu lts) 0.00 in [facility] ([facility]) Diastolic blood pressure 0 mm[Hg] Normal (applies to non-numeric results) 0 mm[Hg] [facility] ([facility]) Systolic blood pressure 0 mm[Hg] Normal (applies t o non-numeric results) 0 mm[Hg] [facility] ([facility]) Body mass index (BMI) [Ratio] 0.00 kg/m2 No rmal (applies to non-numeric results) 0.00 kg/m2 [facility] ([facility]) Body weight Measured 0.00 lbs Normal (applies to n on-numeric results) 0.00 lbs [facility] ([facility]) Body height 0.00 in Normal (applies to non-numeric resu lts) 0.00 in [facility] ([facility])
[2020-11-05 09:40] LABS: HEMATOCRIT 39.7 % (36.0-47.0); HEMOGLOBIN 12.7 g/dl (12.0-15.5); MEAN CORPUSCULAR HEMOGLOBIN 28.2 pg (27.0-33.0); MEAN CORPUSCULAR VOLUME 88.2 fl (80.0-96.0); PLATELET COUNT, AUTOMATED 241 10^3/uL (150-450); WHITE BLOOD COUNT 7.8 10^3/uL (4.0-10.0)
[2020-11-05] MEDS ORDERED: ROCURONIUM BROMIDE 50 MG/5 ML VIAL As Ordered ONE ×2 (10:05→12:41)
[2020-11-05] MEDS ORDERED: dexameTHASONE 4 MG/ML 1ML VIAL (J1100 PER 1MG) As Ordered ONE (10:05)
[2020-11-05] MEDS ORDERED: propofoL 200 MG/20 ML VIAL As Ordered ONE (10:05)
[2020-11-05] MEDS ORDERED: LIDOCAINE 2% 100MG/5ML SDV (FOR ANES.) As Ordered ONE (10:05)
[2020-11-05] MEDS ORDERED: MIDAZOLAM INJ 2MG/2ML VIAL (J2250 PER 1MG) As Ordered ONE (10:05)
[2020-11-05] MEDS ORDERED: fentaNYL 250 MCG/5 ML INJECTION (J3010) As Ordered ONE (10:05)
[2020-11-05] MEDS ORDERED: ONDANSETRON 4MG/2ML VIAL As Ordered ONE ×2 (10:05→14:20)
[2020-11-05] MEDS ORDERED: BUPIVACAINE HCL 0.25% 10ML VIAL As Ordered ONE (10:33)
[2020-11-05] MEDS ORDERED: LABETALOL 100MG/20ML VIAL As Ordered ONE (11:44)
[2020-11-05] MEDS ORDERED: KETOROLAC 60MG 2ML VIAL As Ordered ONE (12:04)
[2020-11-05] MEDS ORDERED: SUGAMMADEX SODIUM 500 MG/5 ML VIAL (BRIDION) As Ordered ONE (12:04)
[2020-11-05] MEDS ORDERED: ACETAMINOPHEN 1000MG 100ML IV BTL (OFIRMEV) (J0131 PER 10MG) As Ordered ONE (12:04)
[2020-11-05] MEDS ORDERED: HYDROmorphone HCL 2 MG/ML 1ML VIAL (J1170) As Ordered ONE (12:04)
[2020-11-05] MEDS ORDERED: LACRILUBE (AKWA TEARS) OPHTH OINT 3.5 GM As Ordered ONE (12:04)
[2020-11-05] MEDS: LR 1,000 ML IV SCH ×2 (13:59→15:28)
--- NOTE | 2020-11-05 14:01 | ROOPDOC ---
[facility] Report Of Operation Report of Operation DATE OF PROCEDURE: 11/05/20 OPERATIVE REPORT: Preoperative diagnosis: Menorrhagia Postoperative diagnosis: Same. Procedure: Robotic-assisted laparoscopic hysterectomy, left salpingectomy, right ovarian cystectomy, cystoscopy. Surgeon: Juliane Ceron M.D. Stapler Machine: Corrine Jimenez NP EBL: 350 mL's. Urine output: 100 mL's. Findings: Dense adhesions of omentum to anterior abdominal wall and uterus. Dense adhesions of bladder to anterior uterus. 4 cm right ovarian cyst. Right fallopian tube unable to be from the right ovary due to adhesions. Mi ldly enlarged uterus, possible fibroids. Operative summary: Patient was taken to the operating room where general endotracheal anesthesia was induced. She was prepped and draped in sterile fashion in the dorsal lithotomy position. A Snyder Catheter was placed. A [email or web address] care uterine manipulator was placed. A Periumbilical incision was made with a scalpel. A Veress needle was placed through this incision. Intra-abdominal location of Veress needle was assessed with saline filled syringe. A pneumoperitoneum was created. The Veress needle was removed. An 8 mm trocar using the Visiport was inserted through this incision. Three 8 mm suprapubic ports were placed under direct visualization The patient was placed in Trendelenburg position. The da Cinthya surgical robot was docked to the ports. Using the fenestrated bipolar instrument and vessel sealer, dense adhesions of omentum to the anterior abdominal wall and uterus were taken down with a combination of blunt and sharp dissection. The IP ligaments and broad ligaments were coagulated and incised. The round ligaments were coagulated and incised. The anterior and posterior leaves of the broad ligament were . Bladder flap was created with difficulty due to dense bladder adhesions. The uterine vessels were coagulated and incised using monopolar Endo Robin. A colpotomy was created in the upper vagina at the level of the V care Cup. The specimen including the uterus, cervix, left fallopian tube and right ovarian cyst was removed through the vagina. The vaginal cuff was closed with #1 V lock suture in running fashion. Cystoscopy was performed using a 70 cystoscope. Bilateral ureteral jets were identified. No evidence of injury to the bladder. The cystoscope was removed. All instruments removed. The skin was closed with 4-0 Monocryl subcuticular sutures. Corrine Jimenez NP assisted with all aspects of the procedure. She helped position the patient. She helped insert the ports and manipulate the uterus. She removed the specimen. JULIANE CERON MD Nov 05, 2020 14:01
[2020-11-05] MEDS ORDERED: OXYC1TAB23 PO (14:02)
[2020-11-05] MEDS ORDERED: IBUP-1022 PO (14:03)
[2020-11-05] MEDS ORDERED: PERCOCET 5MG/325MG TAB PO PRN ×2 (14:45)
[2020-11-05] MEDS ORDERED: MORPHINE 4 MG/ML 1ML VIAL/SYRINGE (J2270) IV PRN (14:45)
[2020-11-05] MEDS ORDERED: oxyCODONE 5MG TAB PO PRN (14:45)
[2020-11-05] MEDS ORDERED: fentaNYL 100 MCG/2 ML INJECTION (J3010) IV PRN (14:45)
[2020-11-05] MEDS ORDERED: ONDANSETRON 4MG/2ML VIAL IV PRN ×3 (14:45→15:15)
[2020-11-05] MEDS ORDERED: LR 1,000 ML IV SCH (14:45)
[2020-11-05] MEDS ORDERED: KETOROLAC 30 MG/ML 1ML VIAL IV PRN (14:45)
[2020-11-05] MEDS ORDERED: METOCLOPRAMIDE INJ 10MG/2ML VIAL (J2765 PER 1) As Ordered ONE (14:50)
[2020-11-05] MEDS ORDERED: METOCLOPRAMIDE INJ 10MG/2ML VIAL (J2765 PER 1) IV PRN (15:15)
[2020-11-05] MEDS: DOCUSATE SODIUM 100MG CAPSULE PO SCH (20:46)
[2020-11-06 02:00] VITALS: BP 97/63
[2020-11-06 06:00] VITALS: BP 96/60
[2020-11-06 07:04] VITALS: BP 100/62
[2020-11-06 07:48] LABS: HEMATOCRIT 31.9 % (36.0-47.0); MEAN CORPUSCULAR HEMOGLOBIN 29.2 pg (27.0-33.0); MEAN CORPUSCULAR HGB CONC 32.9 g/dl (32.0-36.5); MEAN CORPUSCULAR VOLUME 88.6 fl (80.0-96.0); PLATELET COUNT, AUTOMATED 222 10^3/uL (150-450)
[2020-11-06] MEDS ORDERED: IBUPROFEN 800 MG TAB PO PRN (08:00)
[2020-11-06 08:15] LABS: HEMOGLOBIN 10.5 g/dl (12.0-15.5)
[2020-11-06] MEDS: DOCUSATE SODIUM 100MG CAPSULE PO SCH (08:33)
[2020-11-06] MEDS ORDERED: GABAPENTIN 400MG CAP PO SCH (09:00)
[2020-11-07] MEDS ORDERED: UNRESOLVED CLARIFICATION ENTRY XX SCH (00:01)
== END 2020-11-06 11:36 | disposition home or self-care (01) ==
LOC: M SDC 09:09 → M MSPAV 15:30 → M SDC 11-06 11:36
PROVIDERS: ATTEND Specialist
DX: N92.6 Irregular menstruation, unspecified (principal); N80.0 Endometriosis of uterus; K66.0 Peritoneal adhesions (postprocedural) (postinfection); N83.201 Unspecified ovarian cyst, right side; F31.9 Bipolar disorder, unspecified; Z79.899 Other long term (current) drug therapy
CPT/HCPCS: 36415; 58571; 58662; 81025; 85027; 86850; 86900; 86901; 88307; 96360; 96361; J0131; J0690; J1100; J1170; J1885; J2250; J2405; J2765; J3010; S2900

== ENCOUNTER 2021-01-04 11:34 | Day surgery (SDC) | payer OTHER ==
[~2021-01-04] VITALS: Ht 152.4 cm; Wt 70.2 kg
[~2021-01-04 11:34] MED LIST changes: +ACETAMINOPHEN 1000MG 100ML IV BTL (OFIRMEV) (J0131 PER 10MG) As Ordered ONE; +BUPR150T12 PO; -BUPR150T4 PO; +IBUP-1022 PO; +KETOROLAC 60MG 2ML VIAL As Ordered ONE; +LIDOCAINE 2% 100MG/5ML SDV (FOR ANES.) As Ordered ONE; -LR 1,000 ML IV ONE; +MIDAZOLAM INJ 2MG/2ML VIAL (J2250 PER 1MG) As Ordered ONE; +ONDANSETRON 4MG/2ML VIAL As Ordered ONE; +OXYC1TAB23 PO; +ROCURONIUM BROMIDE 50 MG/5 ML VIAL As Ordered ONE; +SUGAMMADEX SODIUM 500 MG/5 ML VIAL (BRIDION) As Ordered ONE; -ceFAZolin SOD 2 GM in IV 1 EA IV ONE; +dexameTHASONE 4 MG/ML 1ML VIAL (J1100 PER 1MG) As Ordered ONE; +fentaNYL 100 MCG/2 ML INJECTION (J3010) As Ordered ONE; +propofoL 200 MG/20 ML VIAL As Ordered ONE
[2021-01-04] MEDS ORDERED: BUPIVACAINE HCL 0.25% 30ML VIAL As Ordered ONE (12:08)
[2021-01-04] MEDS ORDERED: SCOPOLAMINE 1MG TRANSDERMAL PATCH TOP ONE (12:35)
[2021-01-04] MEDS ORDERED: ceFAZolin 2 GM/D5W 50 ML IV BAG (J0690 PER 500MG) As Ordered ONE (13:17)
[2021-01-04] MEDS ORDERED: fentaNYL 100 MCG/2 ML INJECTION (J3010) As Ordered ONE (13:28)
[2021-01-04] MEDS ORDERED: METOCLOPRAMIDE INJ 10MG/2ML VIAL (J2765 PER 1) As Ordered ONE (13:44)
[2021-01-04] MEDS ORDERED: OXYC1TAB23 PO (14:20)
[2021-01-04] MEDS ORDERED: ONDANSETRON 4MG/2ML VIAL IV PRN (14:45)
[2021-01-04] MEDS ORDERED: LR 1,000 ML IV SCH ×2 (14:45→14:50)
[2021-01-04] MEDS ORDERED: oxyCODONE 5MG TAB PO PRN (14:45)
[2021-01-04] MEDS ORDERED: fentaNYL 100 MCG/2 ML INJECTION (J3010) IV PRN (14:45)
[2021-01-04 14:50] VITALS: BP 128/63
--- NOTE | 2021-01-23 15:04 | ROOPDOC ---
[facility] Report Of Operation Report of Operation DATE OF PROCEDURE: January 04, 2021 PREPROCEDURE DIAGNOSES: vaginal cuff dehiscence s/p hysterectomy. POSTPROCEDURE DIAGNOSES: same. PROCEDURE: Laparoscopic assisted closure of vaginal cuff dehiscence. SURGEON: Juliane Ceron MD ANESTHESIA: GETA. ESTIMATED BLOOD LOSS: Approximately 50 mL. COMPLICATIONS: none. FINDINGS: 2.5 cm dehiscence of vaginal cuff with omentum visible at the defect. PROCEDURE NOTE: The patient was taken to the operating room where general endotracheal anesthesia was induced. She was prepped and draped in sterile fashion in the dorsal lithotomy position. Bladder was emptied with a catheter. A sponge stick was placed in the vagina to use as a manipulator. A periumbilical incision was made with a scalpel. A Veress needle was placed through this incision with tenting up on the skin of the abdomen. An intra-abdominal location of Veress needle was assessed with use of a saline filled syringe. A pneumoperitoneum was created. The Veress needle was removed. A 5 mm trocar using Visiport was inserted through this incision. A 5 mm scope with camera was used to visualize the abdomen and pelvis. Two 5 mm suprapubic ports were placed under direct visualization. The LigaSure device was used to coagulate and incise omental adhesions to the anterior abdominal wall. A grasping instrument was used to remove omental contents that had protruded into the vaginal defect. There was no injury to the bowel. Attention was turned to the vagina. A weighted speculum and retractor was placed. The vaginal cuff was closed with 0 Vicryl a running locked fashion. Good hemostasis was noted. All instruments removed. Sponge, instrument and needle counts were correct. The patient was extubated and went to the recovery room in stable condition. JULIANE CERON MD January 23, 2021 15:04
== END 2021-01-04 16:40 | disposition home or self-care (01) ==
LOC: M SDC 11:34
PROVIDERS: ATTEND Specialist
DX: T81.31XA Disruption of external operation (surgical) wound, not elsewhere classified, initial encounter (principal); N92.0 Excessive and frequent menstruation with regular cycle; Z79.899 Other long term (current) drug therapy; F31.9 Bipolar disorder, unspecified
CPT/HCPCS: 49329; 87798; J0131; J0690; J1100; J1885; J2250; J2405; J2765; J3010

== ENCOUNTER 2021-07-05 12:45 | Emergency (ER) | payer OTHER ==
[~2021-07-05] VITALS: Ht 152.4 cm; Wt 72.8 kg
[2021-07-05 12:45] VITALS: BP 111/65
[~2021-07-05 12:45] MED LIST changes: -ACETAMINOPHEN 1000MG 100ML IV BTL (OFIRMEV) (J0131 PER 10MG) As Ordered ONE; +GABA-283; -GABA-845; -KETOROLAC 60MG 2ML VIAL As Ordered ONE; -LIDOCAINE 2% 100MG/5ML SDV (FOR ANES.) As Ordered ONE; -MIDAZOLAM INJ 2MG/2ML VIAL (J2250 PER 1MG) As Ordered ONE; -ONDANSETRON 4MG/2ML VIAL As Ordered ONE; -ROCURONIUM BROMIDE 50 MG/5 ML VIAL As Ordered ONE; -SUGAMMADEX SODIUM 500 MG/5 ML VIAL (BRIDION) As Ordered ONE; -dexameTHASONE 4 MG/ML 1ML VIAL (J1100 PER 1MG) As Ordered ONE; -fentaNYL 100 MCG/2 ML INJECTION (J3010) As Ordered ONE; -propofoL 200 MG/20 ML VIAL As Ordered ONE
--- OUTSIDE RECORDS SUMMARY | 2021-07-05 12:52 | CCD ---
Author Author Arslan Myriam Chinchilla Organization Unknown Address [address] [address] Phone Care Team Providers Care Labor Crew Supervisor Name Role Phone Renée Mcdaniels PCP Chief Complaint and Reason for Visit Chief Complaint Allergies, Adverse Reactions, Alerts Concept Allergy Name Reaction Severity Onset Date Status Documentation Date Phone Number Npid Taxonomy Code Taxonomy Desc Author Last Name Author Fi rst Name Concept Type 468045 ziprasidone hcl Oversedation 11/26/2017 Active 11/25/19 18 [id number] Psychiatric/Mental Health Jaret Diaz RX NORM Problem List Concept Problem Description Status Start Date Created Date Resolv ed Date Snomed Code F33.2 Major Depressive Disorder, Recurrent episode, Severe A ctive 12/30/2018 12/30/2018 F31.81 Bipolar II Disorder Active 10/02/2015 10/02/2015 F41.1 Generalized Anxiety Disorder Active 03/02/2018 03/02/2018 F12.10 Cannabis Use Disorder, Mild Active 05/16/2021 Medications No Data in Section Social History Social History Element Description Concept Effective Date Smoking Status Unknown if ever smoked [id number] Immunizations No Data in Section Vital Signs No Data in Section Procedures Date Concept Id Description Targeted Site Concept Targeted Site Concept Type 05/16/2021 73820 Brief Individual Psychotherapy - 30 min CPT Patient has no history of implantable de vices Encounters Encounter Start Date End Date Encounter Type Description Diagnosis Di agnosis Desc Location Author First Name Author Last Name Npid Taxonomy Cod e Taxonomy Desc Phone Number Location Addr1 Location Addr2 Location [facility] Location [facility] Location [facility] [id number] 05/16/2021 05/16/2021 [id number] Brief Individual Psychoth erapy - 30 min F33.2 Major depressv disorder, recurrentsevere w/o psych fea tures [facility] [id number] [employer] [id number] [phone] [address] Plan of Treatment No Data in Section Lab Results No Data in Section Instructions No Data in Section Insurance Providers Insurance Id Policy Effective Date Policy Thru Date Company Michel patel [id number] 2019 Modesto muñoz Plan
--- OUTSIDE RECORDS SUMMARY | 2021-07-05 12:52 | CCD ---
Author Author [facility] Organization [facility] Address Unknown Phone Unavailable Care Team Providers Care Pediatric Physiatrist Name Role Phone Renée Mcdaniels Unavailable BLISS, G EDWARD RPA Unavailable Unavailable BLISS, G EDWARD RPA Unavailable Unavailable BLISS, G EDWARD RPA Unavailable Unavailable BLISS, G EDWARD RPA Unavailable Unavailable BLISS, G EDWARD RPA Unavailable Unavailable BLISS, G EDWARD RPA Unavailable Unavailable BLISS, G EDWARD RPA Unavailable Unavailable BLISS, G EDWARD RPA Unavailable Unavailable BLISS, G EDWARD RPA Unavailable Unavailable BLISS, G EDWARD RPA Unavailable Unavailable BLISS, G EDWARD RPA Unavailable Unavailable BLISS, G EDWARD RPA Unavailable Unavailable BLISS, G EDWARD RPA Unavailable Unavailable BLISS, G EDWARD RPA Unavailable Unavailable BLISS, G EDWARD RPA Unavailable Unavailable BLISS, G EDWARD RPA Unavailable Unavailable BLISS, G EDWARD RPA Unavailable Unavailable BLISS, G EDWARD RPA Unavailable Unavailable BLISS, G EDWARD RPA Unavailable Unavailable BLISS, G EDWARD RPA Unavailable Unavailable BLISS, G EDWARD RPA Unavailable Unavailable BLISS, G EDWARD RPA Unavailable Unavailable BLISS, G EDWARD RPA Unavailable Unavailable BLISS, G EDWARD RPA Unavailable Unavailable BLISS, G EDWARD RPA Unavailable Unavailable BLISS, G EDWARD RPA Unavailable Unavailable BLISS, G EDWARD RPA Unavailable Unavailable BLISS, G EDWARD RPA Unavailable Unavailable BLISS, G EDWARD RPA Unavailable Unavailable BLISS, G EDWARD RPA Unavailable Unavailable BLISS, G EDWARD RPA Unavailable Unavailable BLISS, G EDWARD RPA Unavailable Unavailable BLISS, G EDWARD RPA Unavailable Unavailable BLISS, G EDWARD RPA Unavailable Unavailable BLISS, G EDWARD RPA Unavailable Unavailable REAL, H SHEILA MANAGER ADMINISTRATIVE Unavailable Unavailable REAL, H SHEILA MANAGER ADMINISTRATIVE Unavailable Unavailable REAL, H SHEILA MANAGER ADMINISTRATIVE Unavailable Unavailable REAL, H SHEILA MANAGER ADMINISTRATIVE Unavailable Unavailable REAL, H SHEILA MANAGER ADMINISTRATIVE Unavailable Unavailable REAL, H SHEILA MANAGER ADMINISTRATIVE Unavailable Unavailable REAL, H SHEILA MANAGER ADMINISTRATIVE Unavailable Unavailable REAL, H SHEILA MANAGER ADMINISTRATIVE Unavailable Unavailable REAL, H SHEILA MANAGER ADMINISTRATIVE Unavailable Unavailable GoutremClarita koch Unavailable Rohan, M Christopher PA-C Unavailable Unavailable Madrigal, M Christopher PA-C Unavailable Unavailable Madrigal, M Christopher PA-C Unavailable Unavailable Madrigal, M Christopher PA-C Unavailable Unavailable Madrigal, M Christopher PA-C Unavailable Unavailable Madrigal, M Christopher PA-C Unavailable Unavailable Madrigal, M Christopher PA-C Unavailable Unavailable Madrigal, M Christopher PA-C Unavailable Unavailable Madrigal, M Christopher PA-C Unavailable Unavailable Madrigal, M Christopher PA-C Unavailable Unavailable Madrigal, M Christopher PA-C Unavailable Unavailable Madrigal, M Christopher PA-C Unavailable Unavailable Madrigal, M Christopher PA-C Unavailable Unavailable Madrigal, M Christopher PA-C Unavailable Unavailable Madrigla, M Christopher PA-C Unavailable Unavailable Madrigal, M Christopher PA-C Unavailable Unavailable Madrigal, M Christopher PA-C Unavailable Unavailable Madrigal, M Christopher PA-C Unavailable Unavailable Madrigal, M Christopher PA-C Unavailable Unavailable Madrigal, M Christopher PA-C Unavailable Unavailable Madrigal, M Christopher PA-C Unavailable Unavailable Madrigal, M Christopher PA-C Unavailable Unavailable Madrigal, M Christopher PA-C Unavailable Unavailable Nasir Madrigal PA-C Unavailable Unavailable Madrigal Nasir [facility] Unavailable Unavailable MadrigalNasir Crow BLACK Unavailable Unavailable Re-disclosure Warning The records that [...] is protected by Article 27-F of the [facility] Public Health law. If you continue you may have access to information: Regarding HIV / AIDS; Provided by facilities licensed or operated by the [facility] Office of Mental Health; or Provided by the [facility] Office for People With Developmental Disabilities. If such information is present, then the following [facility] mandated warning applies: This information has [...] law may result in a fine or custodial sentence or both. A general authorization for the release of medical or other information is NOT sufficient authorization for further disc losure. Allergies and Adverse Reactions Type Description Substance Reaction Status Data Source(s ) Propensity to adverse reactions to substance ziprasidone hcl ziprasidone 20 MG Oral Capsule Active [facility] ([facility]) Encounters Encounter Providers Location Date Indications Data Source(s ) Brief Individual Psychotherapy - 30 min Attender: Renée de leon [facility] 05/16/2021 11:30:00 AM EDT - 05/16/2021 11:30:00 AM EDT [facility] ([facility]) Attender: Renée Mcdaniels 05/16/2021 12:00:00 AM E DT [facility] ([facility]) Outpatient Attender: ALEX BLISS RPA 04/13 11:31:32 AM EDT - 04/13/2021 01:45:11 PM EDT [facility] ([facility] ) Outpatient Attender: Crow Madrigal PA-C 03/27/2021 02:41:31 PM EDT - 03/27/2021 04:16:46 PM EDT [facility] ([facility]) Attender: Clarita Gordon 02/11/2021 12:00:0 0 AM EDT [facility] ([facility]) Extended Individual Psychotherapy - 45 min Attender: Iris davalos [facility] 02/08/2021 02:45:00 AM EDT - 02/08/2021 02:45:00 AM EDT [facility] ([facility]) Extended Individual Psychotherapy - 45 min Attender: Iris davalos [facility] 01/24/2021 02:45:00 AM EDT - 01/24/2021 02:45:00 AM EDT [facility] ([facility]) Attender: Clarita Gordon 01/24/2021 12:00:0 0 AM EDT [facility] ([facility]) (WC 15ESGYN) 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 [address] [place] [address] 01/21/2021 12:00:00 AM EDT eCW1 ([facility]) Outpatient Attender: SHEILA LUNSFORD NP [facility] Bhavin wanda 01/14/2021 01:00:00 AM EDT - 01/14/2021 01:00:00 AM EDT [facility] ([facility]) Attender: SHEILA LUNSFORD NP 01/14/2021 12:00:00 AM EDT [facility] ([facility]) Extended Individual [facility] - 45 [facility] 02:00:00 AM EDT - 01/09/2021 02:00:00 AM EDT [facility] ([facility]) Attender: Clarita Evan 01/09/2021 12:00:0 0 AM EDT [facility] ([facility]) Unknown [address] [facility] [address] 01/04/2021 12:00:00 AM EDT eCW1 ([facility]) (WC 15ESGYN) 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 [address] [place] [address] 01/03/2021 12:00:00 AM EDT eCW1 ([facility]) [place] [address] [facility] [address] 01/02/2021 12:00:00 AM EDT eCW1 ([facility]) Outpatient Attender: SHEILA LUNSFORD NP [facility] Bhavin muñoz 12/31/2020 10:30:00 AM EDT - 12/31/2020 10:30:00 AM EDT [facility] ([facility]) Attender: SHEILA LUNSFORD NP 12/31/2020 12:00:00 AM EDT [facility] ([facility]) Outpatient Attender: SHEILA LUNSFORD NP [facility] Bhavin muñoz 12/26/2020 09:00:00 AM EDT - 12/26/2020 09:00:00 AM EDT [facility] ([facility]) Attender: SHEILA LUNSFORD NP 12/26/2020 12:00:00 AM EDT [facility] ([facility]) Outpatient Attender: SHEILA LUNSFORD NP [facility] Bhavin muñoz 11/28/2020 03:30:00 AM EST - 11/28/2020 03:30:00 AM EST [facility] ([facility]) Attender: SHEILA LUNSFORD NP 11/28/2020 12:00:00 AM EST [facility] ([facility]) Outpatient Attender: SHEILA LUNSFORD NP [facility] Bhavin l 11/06/2020 03:00:00 AM EST - 11/06/2020 03:00:00 AM EST [facility] ([facility]) Attender: SHEILA LUNSFORD NP 11/06/2020 12:00:00 AM EST [facility] ([facility]) (WC 20ESGYN) WCenter 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 [address] [place] [address] 10/29/2020 12:00:00 AM EST eCW1 ([facility]) Unknown [address] [facility] [address] 10/25/2020 12:00:00 AM EST eCW1 ([facility]) Outpatient [address] [facility] [address] 10/24/2020 12:00:00 AM EST eCW1 ([facility]) Outpatient Attender: SHEILA LUNSFORD NP [facility] Bhavin muñoz 10/09/2020 01:30:00 AM EST - 10/09/2020 01:30:00 AM EST [facility] ([facility]) Attender: SHEILA LUNSFORD NP 10/09/2020 12:00:00 AM EST [facility] ([facility]) Outpatient Attender: SHEILA LUNSFORD NP [facility] Bhavin muñoz 09/04/2020 04:00:00 AM EST - 09/04/2020 04:00:00 AM EST [facility] ([facility]) Attender: SHEILA LUNSFORD NP 09/04/2020 12:00:00 AM EST [facility] ([facility]) Outpatient Attender: SHEILA LUNSFORD NP [facility] Bhavin wanda 07/24/2020 05:30:00 AM EST - 07/24/2020 05:30:00 AM EST [facility] ([facility]) Attender: SHEILA LUNSFORD NP 07/24/2020 12:00:00 AM EST [facility] ([facility]) Attender: SHEILA LUNSFORD NP 07/05/2020 12:00:00 AM EDT [facility] ([facility]) Outpatient Attender: SHEILA LUNSFORD NP [facility] Bhavin l 07/04/2020 03:00:00 AM EDT - 07/04/2020 03:00:00 AM EDT [facility] ([facility]) Outpatient Attender: SHEILA LUNSFORD NP [facility] Bhavin l 05/31/2020 08:30:00 AM EDT - 05/31/2020 08:30:00 AM EDT [facility] ([facility]) Attender: SHEILA LUNSFORD NP 05/31/2020 12:00:00 AM EDT [facility] ([facility]) Functional Status Immunizations Vaccine Date Status Description Data Source(s) COVID-19 VACCINE Moderna 03/26/2021 12:00:00 AM EDT completed [place] Vaccine Series Complete: YESThis Data wa s Submitted to [facility] Via [facility]. COVID-19 VACCINE Pramod 02/07/2021 12:00:00 AM EDT completed [place] Vaccine Series Complete: YESThis Data wa s Submitted to [facility]. Medications Medication Brand Name Start Date Product Form Dose Route Admi nistrative Instructions Pharmacy Instructions Status Indications Reaction Description Data Source(s) 500 mg 04/13/2021 12:00:00 AM EDT tablet 3 TAKE ONE TABLET BY MOUTH EVERY DAY TAKE ONE TABLET BY MOUTH EVERY DAY SOLD: 04/13/2021 [facility] benzonatate 100 MG Oral Capsule BENZONATATE 04/13/2021 12:00:00 AM EDT capsule 60 TAKE TWO CAPSULES BY MOUTH THREE TIMES A DAY FOR 10 DAYS TAKE TWO CAPSULES BY MOUTH THREE TIMES A DAY FOR 10 DAYS SOLD: 04/13/2021 [facility] Cyclobenzaprine hydrochloride 10 MG Oral Tablet CYCLOBENZAPR INE HCL 03/28/2021 12:00:00 AM EDT tablet 9 TAKE ONE TABLET BY MOUTH THREE TIMES A DAY FOR 3 DAYS TAKE ONE TABLET BY MOUTH THREE TIMES A DAY FOR 3 DAYS SOLD: [facility] 24 HR Bupropion Hydrochloride 150 MG Extended Release Oral T ablet BUPROPION HCL 03/23/2021 12:00:00 AM EDT tablet extended release 24 hr 30 TAKE ONE TABLET BY MOUTH EVERY MORNING TAKE ONE TABLET BY MOUTH EVERY MORNING SOLD: 06/24/2021 [facility] 24 HR Bupropion Hydrochloride 150 MG Extended Release Oral T ablet BUPROPION HCL 03/23/2021 12:00:00 AM EDT tablet extended release 24 hr 30 TAKE ONE TABLET BY MOUTH EVERY MORNING TAKE ONE TABLET BY MOUTH EVERY MORNING SOLD: 05/11/2021 [facility] 24 HR Bupropion Hydrochloride 150 MG Extended Release Oral T ablet BUPROPION HCL 03/23/2021 12:00:00 AM EDT tablet extended release 24 hr 30 TAKE ONE TABLET BY MOUTH EVERY MORNING TAKE ONE TABLET BY MOUTH EVERY MORNING SOLD: 03/23/2021 [facility] 400 mg 01/15/2021 12:00:00 AM EDT capsule 90 TAKE ONE CAPSULE BY MOUTH THREE TIMES A DAY TAKE ONE CAPSULE BY MOUTH THREE TIMES A DAY SOLD: 05/11/2021 [facility] 400 mg 01/15/2021 12:00:00 AM EDT capsule 90 TAKE ONE CAPSULE BY MOUTH THREE TIMES A DAY TAKE ONE CAPSULE BY MOUTH THREE TIMES A DAY SOLD: 01/20/2021 [facility] 25 mg 01/15/2021 12:00:00 AM EDT tablet 60 TAKE TWO TABLETS BY MOUTH EVERY DAY TAKE TWO TABLETS BY MOUTH EVERY DAY SOLD: 03/23/2021 [facility] 25 mg 01/15/2021 12:00:00 AM EDT tablet 60 TAKE TWO TABLETS BY MOUTH EVERY DAY TAKE TWO TABLETS BY MOUTH EVERY DAY SOLD: 05/11/2021 [facility] 25 mg 01/15/2021 12:00:00 AM EDT tablet 60 TAKE TWO TABLETS BY MOUTH EVERY DAY TAKE TWO TABLETS BY MOUTH EVERY DAY SOLD: 01/20/2021 [facility] 400 mg 01/15/2021 12:00:00 AM EDT capsule 90 TAKE ONE CAPSULE BY MOUTH THREE TIMES A DAY TAKE ONE CAPSULE BY MOUTH THREE TIMES A DAY SOLD: 03/23/2021 [facility] Ibuprofen 800 MG Oral Tablet Ibuprofen 800 MG 01/04/2021 12:00:00 AM E DT suspended Ibuprofen 800 MG eCW1 ([facility]) Acetaminophen 325 MG / Oxycodone Hydroch loride 5 MG Oral Tablet [Percocet] Percocet 5-325 MG Percocet 5-325 MG 01/04/2021 12:00:00 AM EDT 1 .0 {tablet_as_needed} active Percocet 5-32 5 MG eCW1 ([facility]) Ibuprofen 800 MG Oral Tablet Ibuprofen 800 MG 01/04/2021 12:00:00 AM E DT active Ibuprofen 800 MG eCW1 ([facility]) Acetaminophen 325 MG / Oxycodone Hydroch loride 5 MG Oral Tablet [Percocet] Percocet 5-325 MG Percocet 5-325 MG 01/04/2021 12:00:00 AM EDT 1 .0 {tablet_as_needed} suspended Percocet 5- 325 MG eCW1 ([facility]) Ibuprofen 800 MG Oral Tablet Ibuprofen 800 MG 01/04/2021 12:00:00 AM E DT active Ibuprofen 800 MG eCW1 ([facility]) Acetaminophen 325 MG / Oxycodone Hydroch loride 5 MG Oral Tablet [Percocet] Percocet 5-325 MG Percocet 5-325 MG 01/04/2021 12:00:00 AM EDT 1 .0 {tablet_as_needed} active Percocet 5-32 5 MG eCW1 ([facility]) 400 mg 11/29/2020 12:00:00 AM EST capsule 90 TAKE ONE CAPSULE BY MOUTH THREE TIMES A DAY TAKE ONE CAPSULE BY MOUTH THREE TIMES A DAY SOLD: 12/05/2020 [facility] 24 HR Bupropion Hydrochloride 150 MG Extended Release Oral T ablet BUPROPION HCL 11/29/2020 12:00:00 AM EST tablet extended release 24 hr 30 TAKE ONE TABLET BY MOUTH EVERY MORNING TAKE ONE TABLET BY MOUTH EVERY MORNING SOLD: 01/12/2021 [facility] 25 mg 11/29/2020 12:00:00 AM EST tablet 60 TAKE TWO TABLETS BY MOUTH EVERY DAY TAKE TWO TABLETS BY MOUTH EVERY DAY SOLD: 12/05/2020 [facility] 24 HR Bupropion Hydrochloride 150 MG Extended Release Oral T ablet BUPROPION HCL 11/29/2020 12:00:00 AM EST tablet extended release 24 hr 30 TAKE ONE TABLET BY MOUTH EVERY MORNING TAKE ONE TABLET BY MOUTH EVERY MORNING SOLD: 12/05/2020 [facility] gabapentin 400 MG Oral Capsule gabapentin 11/28/2020 12:00:00 AM EST 400 mg by mouth completed <td ID="Medica tionRxNorm_4">691155</td><td ID="MedicationMedication_4">gabapentin</td><td ID="MedicationRoute_4">by mouth</td><td ID="MedicationRouteConcept_4">Y76106</td><td ID="MedicationStartDate_4">11/28/2020</td><td ID="MedicationStopDate_4">04/14/2021</td><td ID="MedicationDosageFrequency_4">three times a day</td><td ID="MedicationDuration_4">30</td><td ID="MedicationFormulaStrength_4">400 mg</td><td ID="MedicationDosageForm_4">capsule</td><td ID="MedicationDosageFormCode_4"></td><td ID="MedicationDosageDescription_4"> </td><td ID="MedicationMedicationId_4">[id number]</td><td ID="MedicationAccount_4">[id number]</td><td ID="MedicationNpid_4">[id number]</td><td ID="MedicationAuthorFirstName_4">Sheila</td><td ID="MedicationAuthorLastName_4">Real</td><td ID="MedicationTaxonomyCode_4">[id number]</td><td ID="MedicationTaxonomyDesc_4">Nurse Practitioner</td><td ID="MedicationPhoneNumber_4">[phone]</td> [facility] ([facility]) 24 HR Bupropion Hydrochloride 150 MG Extended Release Oral Tablet [Wellbutrin] Wellbutrin XL 11/28/2020 12:00:00 AM EST 150 mg by mouth co mpleted <td ID="MedicationRxNorm_2">103542</td><td ID="MedicationMedication_2">Wellbutrin XL</td><td ID="MedicationRoute_2">by mouth</td><td ID="MedicationRouteConcept_2">P75895</td><td ID="MedicationStartDate_2">11/28/2020</td><td ID="MedicationStopDate_2">04/14/2021</td><td ID="MedicationDosageFrequency_2">every morning</td><td ID="MedicationDuration_2">30</td><td ID="MedicationFormulaStrength_2">150 mg</td><td ID="MedicationDosageForm_2">tablet extended release 24 hr</td><td ID="MedicationDosageFormCode_2"></td><td ID="MedicationDosageDescription_2"></td><td ID="MedicationMedicationId_2">[id number]</td><td ID="MedicationAccount_2">[id number]</td><td ID="MedicationNpid_2">[id number]</td><td ID="MedicationAuthorFirstName_2">Sheila</td><td ID="MedicationAuthorLastName_2">Real</td><td ID="MedicationTaxonomyCode_2">[id number]</td><td ID="MedicationTaxonomyDesc_2"> Nurse Practitioner</td><td ID="MedicationPhoneNumber_2">[phone]</td> [facility] ([facility]) lamotrigine 25 MG Oral Tablet [Lamictal] Lamictal 11/28/2020 12 :00:00 AM EST 25 mg by mouth completed <td ID="Me dicationRxNorm_1">060167</td><td ID="MedicationMedication_1">Lamictal</td><td ID="MedicationRoute_1">by mouth</td><td ID="MedicationRouteConcept_1">G74868</td><td ID="MedicationStartDate_1">11/28/2020</td><td ID="MedicationStopDate_1">04/14/2021</td><td ID="MedicationDosageFrequency_1">once a day</td><td ID="MedicationDuration_1">30</td><td ID="MedicationFormulaStrength_1">25 mg</td><td ID="MedicationDosageForm_1">tablet</td><td ID="MedicationDosageFormCode_1"></td><td ID="MedicationDosageDescription_1"></td><td ID="MedicationMedicationId_1">[id number]</td><td ID="MedicationAccount_1">[id number]</td><td ID="MedicationNpid_1">[id number]</td><td ID="MedicationAuthorFirstName_1">Sheila</td><td ID="MedicationAuthorLastName_1">Real</td><td ID="MedicationTaxonomyCode_1">[id number]</td><td ID="MedicationTaxonomyDesc_1">Nurse Practitioner</td><td ID="MedicationPhoneNumber_1">[phone]</td> [facility] ([facility]) Melatonin 10 MG Oral Tablet melatonin 11/28/2020 12:00:00 AM EST 10 mg by mouth completed <td ID="Medica tionRxNorm_3">5651440</td><td ID="MedicationMedication_3">melatonin</td><td ID="MedicationRoute_3">by mouth</td><td ID="MedicationRouteConcept_3">O02045</td><td ID="MedicationStartDate_3">11/28/2020</td><td ID="MedicationStopDate_3">04/14/2021</td><td ID="MedicationDosageFrequency_3">at bedtime</td><td ID="MedicationDuration_3">30</td><td ID="MedicationFormulaStrength_3">10 mg</td><td ID="MedicationDosageForm_3">tablet</td><td ID="MedicationDosageFormCode_3"></td><td ID="MedicationDosageDescription_3"></td><td ID="MedicationMedicationId_3">[id number]</td><td ID="MedicationAccount_3">[id number]</td><td ID="MedicationNpid_3">[id number]</td><td ID="MedicationAuthorFirstName_3">Sheila</td><td ID="MedicationAuthorLastName_3">Real</td><td ID="MedicationTaxonomyCode_3">[id number]</td><td ID="MedicationTaxonomyDesc_3">Nurse Practitioner</td><td ID="MedicationPhoneNumber_3">[phone]</td> [facility] ([facility]) 600 mg 11/06/2020 12:00:00 AM EST tablet 30 TAKE ONE TABLET BY MOUTH THREE TIMES A DAY FOR PAIN WITH FOOD TAKE ONE TABLET BY MOUTH THREE TIMES A D AY FOR PAIN WITH FOOD SOLD: 11/06/2020 [facility] 5-325 mg 11/05/2020 12:00:00 AM EST tablet 20 TAKE ONE TABLET BY MOUTH THREE TIMES A DAY NEEDED FOR PAIN MAXIMUM DAILY DOSE = 3 TAKE ONE TABLET BY MOUTH THREE TIMES A DAY NEEDED FOR PAIN MAXIMUM DAILY DOSE = 3 SOLD: 11/06/2020 [facility] 24 HR Bupropion Hydrochloride 150 MG Extended Release Oral Tablet [Wellbutrin] Wellbutrin XL 07/24/2020 12:00:00 AM EST 150 mg by mouth co mpleted <td ID="MedicationRxNorm_3">553137</td><td ID="MedicationMedication_3">Wellbutrin XL</td><td ID="MedicationRoute_3">by mouth</td><td ID="MedicationRouteConcept_3">G88311</td><td ID="MedicationStartDate_3">07/24/2020</td><td ID="MedicationStopDate_3">11/03/2020</td><td ID="MedicationDosageFrequency_3">every morning</td><td ID="MedicationDuration_3">30</td><td ID="MedicationFormulaStrength_3">150 mg</td><td ID="MedicationDosageForm_3">tablet extended release 24 hr</td><td ID="MedicationDosageFormCode_3"></td><td ID="MedicationDosageDescription_3"></td><td ID="MedicationMedicationId_3">[id number]</td><td ID="MedicationAccount_3">[id number]</td><td ID="MedicationNpid_3">[id number]</td><td ID="MedicationAuthorFirstName_3">Sheila</td><td ID="MedicationAuthorLastName_3">Real</td><td ID="MedicationTaxonomyCode_3">[id number]</td><td ID="MedicationTaxonomyDesc_3"> Nurse Practitioner</td><td ID="MedicationPhoneNumber_3">[phone]</td> [facility] ([facility]) gabapentin 400 MG Oral Capsule gabapentin 07/24/2020 12:00:00 AM EST 400 mg by mouth completed <td ID="Medica tionRxNorm_1">097471</td><td ID="MedicationMedication_1">gabapentin</td><td ID="MedicationRoute_1">by mouth</td><td ID="MedicationRouteConcept_1">C61673</td><td ID="MedicationStartDate_1">07/24/2020</td><td ID="MedicationStopDate_1">11/03/2020</td><td ID="MedicationDosageFrequency_1">three times a day</td><td ID="MedicationDuration_1">30</td><td ID="MedicationFormulaStrength_1">400 mg</td><td ID="MedicationDosageForm_1">capsule</td><td ID="MedicationDosageFormCode_1"></td><td ID="MedicationDosageDescription_1"> </td><td ID="MedicationMedicationId_1">[id number]</td><td ID="MedicationAccount_1">[id number]</td><td ID="MedicationNpid_1">[id number]</td><td ID="MedicationAuthorFirstName_1">Sheila</td><td ID="MedicationAuthorLastName_1">Real</td><td ID="MedicationTaxonomyCode_1">[id number]</td><td ID="MedicationTaxonomyDesc_1">Nurse Practitioner</td><td ID="MedicationPhoneNumber_1">[phone]</td> [facility] ([facility]) gabapentin 400 MG Oral Capsule gabapentin 07/24/2020 12:00:00 AM EST 400 mg by mouth completed <td ID="Medica tionRxNorm_2">479228</td><td ID="MedicationMedication_2">gabapentin</td><td ID="MedicationRoute_2">by mouth</td><td ID="MedicationRouteConcept_2">H37183</td><td ID="MedicationStartDate_2">07/24/2020</td><td ID="MedicationStopDate_2">11/03/2020</td><td ID="MedicationDosageFrequency_2">three times a day</td><td ID="MedicationDuration_2">30</td><td ID="MedicationFormulaStrength_2">400 mg</td><td ID="MedicationDosageForm_2">capsule</td><td ID="MedicationDosageFormCode_2"></td><td ID="MedicationDosageDescription_2"> </td><td ID="MedicationMedicationId_2">[id number]</td><td ID="MedicationAccount_2">[id number]</td><td ID="MedicationNpid_2">[id number]</td><td ID="MedicationAuthorFirstName_2">Sheila</td><td ID="MedicationAuthorLastName_2">Real</td><td ID="MedicationTaxonomyCode_2">[id number]</td><td ID="MedicationTaxonomyDesc_2">Nurse Practitioner</td><td ID="MedicationPhoneNumber_2">[phone]</td> [facility] ([facility]) 400 mg 05/11/2020 12:00:00 AM EDT capsule [...] 12:00:00 AM EDT 150 mg by mouth co mpleted <td ID="MedicationRxNorm_4">666881</td><td ID="MedicationMedication_4">Wellbutrin XL</td><td ID="MedicationRoute_4">by mouth</td><td ID="MedicationRouteConcept_4">E27705</td><td ID="MedicationStartDate_4">05/09/2020</td><td ID="MedicationStopDate_4">07/08/2020</td><td ID="MedicationDosageFrequency_4">every morning</td><td ID="MedicationDuration_4">30</td><td ID="MedicationFormulaStrength_4">150 mg</td><td ID="MedicationDosageForm_4">tablet extended release 24 hr</td><td ID="MedicationDosageFormCode_4"></td><td ID="MedicationDosageDescription_4"></td><td ID="MedicationMedicationId_4">[id number]</td><td ID="MedicationAccount_4">[id number]</td><td ID="MedicationNpid_4">[id number]</td><td ID="MedicationAuthorFirstName_4">Sheila</td><td ID="MedicationAuthorLastName_4">Real</td><td ID="MedicationTaxonomyCode_4">[id number]</td><td ID="MedicationTaxonomyDesc_4"> Nurse Practitioner</td><td ID="MedicationPhoneNumber_4">[phone]</td> [facility] ([facility]) Risperidone 0.5 MG Oral Tablet [Risperdal] Risperdal 05/09 12:00:00 AM EDT 0.5 mg by mouth completed <td ID="Medic ationRxNorm_1">481352</td><td ID="MedicationMedication_1">Risperdal</td><td ID="MedicationRoute_1">by mouth</td><td ID="MedicationRouteConcept_1">[id number]</td><td ID="MedicationStartDate_1">05/09/2020</td><td ID="MedicationStopDate_1">06/30/2020</td><td ID="MedicationDosageFrequency_1">at bedtime</td><td ID="MedicationDuration_1">30</td><td ID="MedicationFormulaStrength_1">0.5 mg</td><td ID="MedicationDosageForm_1">tablet</td><td ID="MedicationDosageFormCode_1"></td><td ID="MedicationDosageDescription_1"></td><td ID="MedicationMedicationId_1">[id number]</td><td ID="MedicationAccount_1">[id number]</td><td ID="MedicationNpid_1">[id number]</td><td ID="MedicationAuthorFirstName_1">Sheila</td><td ID="MedicationAuthorLastName_1">Real</td><td ID="MedicationTaxonomyCode_1">[id number]</td><td ID="MedicationTaxonomyDesc_1">Nurse Practitioner</td><td ID="MedicationPhoneNumber_1">[phone]</td> [facility] ([facility]) Melatonin 10 MG Oral Tablet melatonin 02/07/2020 12:00:00 AM EDT 10 mg by mouth completed <td ID="Medica tionRxNorm_2">[id number]</td><td ID="MedicationMedication_2">melatonin</td><td ID="MedicationRoute_2">by mouth</td><td ID="MedicationRouteConcept_2">L23511</td><td ID="MedicationStartDate_2">02/07/2020</td><td ID="MedicationStopDate_2">07/08/2020</td><td ID="MedicationDosageFrequency_2">at bedtime</td><td ID="MedicationDuration_2">30</td><td ID="MedicationFormulaStrength_2">10 mg</td><td ID="MedicationDosageForm_2">tablet</td><td ID="MedicationDosageFormCode_2"></td><td ID="MedicationDosageDescription_2"></td><td ID="MedicationMedicationId_2">[id number]</td><td ID="MedicationAccount_2">[id number]</td><td ID="MedicationNpid_2">[id number]</td><td ID="MedicationAuthorFirstName_2">Sheila</td><td ID="MedicationAuthorLastName_2">Real</td><td ID="MedicationTaxonomyCode_2">[id number]</td><td ID="MedicationTaxonomyDesc_2">Nurse Practitioner</td><td ID="MedicationPhoneNumber_2">[phone]</td> [facility] ([facility]) Melatonin 10 MG Oral Tablet melatonin 02/07/2020 12:00:00 AM EDT 10 mg by mouth completed <td ID="Medica tionRxNorm_4">[id number]</td><td ID="MedicationMedication_4">melatonin</td><td ID="MedicationRoute_4">by mouth</td><td ID="MedicationRouteConcept_4">Q43168</td><td ID="MedicationStartDate_4">02/07/2020</td><td ID="MedicationStopDate_4">05/19/2020</td><td ID="MedicationDosageFrequency_4">at bedtime</td><td ID="MedicationDuration_4">30</td><td ID="MedicationFormulaStrength_4">10 mg</td><td ID="MedicationDosageForm_4">tablet</td><td ID="MedicationDosageFormCode_4"></td><td ID="MedicationDosageDescription_4"></td><td ID="MedicationMedicationId_4">[id number]</td><td ID="MedicationAccount_4">[id number]</td><td ID="MedicationNpid_4">[id number]</td><td ID="MedicationAuthorFirstName_4">Sheila</td><td ID="MedicationAuthorLastName_4">Real</td><td ID="MedicationTaxonomyCode_4">[id number]</td><td ID="MedicationTaxonomyDesc_4">Nurse Practitioner</td><td ID="MedicationPhoneNumber_4">[phone]</td> [facility] ([facility]) gabapentin 400 MG Oral Capsule gabapentin 11/24/2019 12:00:00 AM EST 400 mg by mouth completed <td ID="Medica tionRxNorm_3">402938</td><td ID="MedicationMedication_3">gabapentin</td><td ID="MedicationRoute_3">by mouth</td><td ID="MedicationRouteConcept_3">O82447</td><td ID="MedicationStartDate_3">11/24/2019</td><td ID="MedicationStopDate_3">05/19/2020</td><td ID="MedicationDosageFrequency_3">three times a day</td><td ID="MedicationDuration_3">30</td><td ID="MedicationFormulaStrength_3">400 mg</td><td ID="MedicationDosageForm_3">capsule</td><td ID="MedicationDosageFormCode_3"></td><td ID="MedicationDosageDescription_3"> </td><td ID="MedicationMedicationId_3">[id number]</td><td ID="MedicationAccount_3">[id number]</td><td ID="MedicationNpid_3">[id number]</td><td ID="MedicationAuthorFirstName_3">Sheila</td><td ID="MedicationAuthorLastName_3">Real</td><td ID="MedicationTaxonomyCode_3">[id number]</td><td ID="MedicationTaxonomyDesc_3">Nurse Practitioner</td><td ID="MedicationPhoneNumber_3">[phone]</td> [facility] ([facility]) Insurance Providers Payer name Policy type / Coverage type Policy ID Covered democrat ID Covered democrat's relationship to holland Policy [place] Plan Information [employer] - [place] Blue Cross/B lue Shield [id number] Self [id number] [employer] [id number] Self [id number] YOSELIN [id number] SP [id number] [place] [id number] S [id number] [place] P[place] [id number] SP [id number] [place] PPO [id number] SP [id number] [place] [id number] Self SELF PAY UNAVAILABLE SP UNAVAILA BLE MEDICAID [id number] SP [id number] MEDICAID S [id number] S [id number] [facility] P [id number] S [id number] YOSELIN [id number] SP [id number] Problems, Conditions, and Diagnoses Code Display Name Description Problem Type Effective Dates Data Source(s) F12.10 Cannabis abuse, uncomplicated Cannabis Use Disorder, M ild Condition 05/16/2021 12:00:00 AM EDT [facility] ([facility]) F41.1 Generalized anxiety disorder Generalized Anxiety Disor chito Condition 05/16/2021 12:00:00 AM EDT [facility] ([facility]) F31.81 Bipolar II disorder Bipolar II Disorder Condition 0 05/16/2021 12:00:00 AM EDT [facility] ([facility]) F33.2 Major depressive disorder, 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 Major Depressive Disorder, Recurrent episode, Severe Condition 0 05/16/2021 12:00:00 AM EDT [facility] ([facility]) Surgeries/Procedures Procedure Description Date Indications Data Source(s) Brief Individual Psychotherapy - 30 min 05/16/2021 12:00:00 AM EDT - 05/16/2021 12:00:00 AM EDT [facility] ([facility]) Brief Individual Psychotherapy - 30 min 05/16/2021 12: 00:00 AM EDT [facility] ([facility]) Extended Individual Psychotherapy - 45 min 02/11/2021 12:00:00 AM EDT - 02/11/2021 12:00:00 AM EDT [facility] ([facility]) Extended Individual Psychotherapy - 45 min 12:00:00 AM EDT [facility] ([facility]) Extended Individual Psychotherapy - 45 min 01/24/2021 12:00:00 AM EDT - 01/24/2021 12:00:00 AM EDT [facility] ([facility]) Extended Individual Psychotherapy - 45 min 12:00:00 AM EDT [facility] ([facility]) OFFICE OUTPATIENT VISIT 15 MINUTES 01/14 12:00:00 AM EDT - 01/14/2021 12:00:00 AM EDT [facility] ([facility]) OFFICE OUTPATIENT VISIT 15 MINUTES 01/14/2021 12:00:00 AM EDT [facility] ([facility]) Extended Individual Psychotherapy - 45 min 01/09/2021 12:00:00 AM EDT - 01/09/2021 12:00:00 AM EDT [facility] ([facility]) Extended Individual Psychotherapy - 45 min 12:00:00 AM EDT [facility] ([facility]) OFFICE OUTPATIENT VISIT 15 MINUTES 12/31 12:00:00 AM EDT - 12/31/2020 12:00:00 AM EDT [facility] ([facility]) OFFICE OUTPATIENT VISIT 15 MINUTES 12/31/2020 12:00:00 AM EDT [facility] ([facility]) OFFICE OUTPATIENT VISIT 15 MINUTES 12/26 12:00:00 AM EDT - 12/26/2020 12:00:00 AM EDT [facility] ([facility]) OFFICE OUTPATIENT VISIT 15 MINUTES 12/26/2020 12:00:00 AM EDT [facility] ([facility]) OFFICE OUTPATIENT VISIT 15 MINUTES 11/28 12:00:00 AM EST - 11/28/2020 12:00:00 AM EST [facility] ([facility]) OFFICE OUTPATIENT VISIT 15 MINUTES 11/28/2020 12:00:00 AM EST [facility] ([facility]) [facility] Telemed E/M Lvl 3--Est pt 11/06/2020 12:00:00 AM EST - 11/06/2020 12:00:00 AM EST [facility] ([facility]) MHC Telemed E/M Lvl 3--Est pt 11/06/2020 12:00:[address] [facility] ([facility]) MHC Telemed E/M Lvl 3--Est pt 10/09/2020 12:00:00 AM EST - 10/09/2020 12:00:00 AM EST [facility] ([facility]) Psychotherapy ADD ON - 30 Minutes 10/09/2020 12:00:00 AM EST [facility] ([facility]) MHC Telemed E/M Lvl 3--Est pt 10/09/2020 12:00:[address] [facility] ([facility]) OFFICE OUTPATIENT VISIT 15 MINUTES 09/04 12:00:00 AM EST - 09/04/2020 12:00:00 AM EST [facility] ([facility]) Psychotherapy ADD ON - 30 Minutes 09/04/2020 12:00:00 AM EST [facility] ([facility]) OFFICE OUTPATIENT VISIT 15 MINUTES 09/04/2020 12:00:00 AM EST [facility] ([facility]) OFFICE OUTPATIENT VISIT 15 MINUTES 07/24 12:00:00 AM EST - 07/24/2020 12:00:00 AM EST [facility] ([facility]) Psychotherapy ADD ON - 45 Min 07/24/2020 12:00:[address] [facility] ([facility]) OFFICE OUTPATIENT VISIT 15 MINUTES 07/24/2020 12:00:00 AM EST [facility] ([facility]) MHC Telemed E/M Lvl 3--Est pt 07/05/2020 12:00:00 AM EDT - 07/05/2020 12:00:00 AM EDT [facility] ([facility]) MHC Telemed E/M Lvl 3--Est pt 07/04/2020 12:00:00 AM E DT [facility] ([facility]) MHC Telemed E/M Lvl 3--Est pt 05/31/2020 12:00:00 AM EDT - 05/31/2020 12:00:00 AM EDT [facility] ([facility]) MHC Telemed E/M Lvl 3--Est pt 05/31/2020 12:00:00 AM E DT [facility] ([facility]) Results ID Date Data Source [id number] 04/13/2021 01:00:00 PM EDT [facility] Name Value Range Interpretation Code Description Data Jenn rce(s) Supporting Document(s) SARS-CoV-2 RNA Resp Ql LENNY+probe NOT DETECTED [facility] This lab was ordered by GIL villanueva and reported by GIL Hunt. ID Date Data Source [id number] 01/04/2021 09:59:00 AM EDT [facility] Name Value Range Interpretation Code Description Data Jenn rce(s) Supporting Document(s) SARS-CoV-2 (COVID 19) NEGATIVE - SARS-CoV-2 (COVID19) [facility] This lab was ordered by [facility] a nd reported by [facility]. ID Date Data Source [id number] 12/26/2020 12:00:00 AM EDT [facility] Name Value Range Interpretation Code Description Data Jenn rce(s) Supporting Document(s) SARS-CoV2 Rapid Antigen Negative [facility] This lab was ordered by [facility] and reported by [facility]. ID Date Data Source [id number] 10/31/2020 12:00:00 PM EST [facility] Name Value Range Interpretation Code Description Data Jenn rce(s) Supporting Document(s) SARS coronavirus 2 RNA Not Detected [facility] This lab was ordered by [facility] and reported by [facility]. Procedure Social History Code Duration Value Status Description Data Source(s ) Smoking 05/16/2021 12:00:00 AM EDT Unknown if ever smoked comp leted Unknown if ever smoked [facility] ([facility]) Smoking 02/11/2021 12:00:00 AM EDT Unknown if ever smoked comp leted Unknown if ever smoked [facility] ([facility]) Smoking 01/24/2021 12:00:00 AM EDT Unknown if ever smoked comp leted Unknown if ever smoked [facility] ([facility]) Smoking 01/21/2021 12:00:00 AM EDT Never Smoker completed Never S moker eCW1 ([facility]) Smoking 01/14/2021 12:00:00 AM EDT Unknown if ever smoked comp leted Unknown if ever smoked [facility] ([facility]) Smoking 01/09/2021 12:00:00 AM EDT Unknown if ever smoked comp leted Unknown if ever smoked [facility] ([facility]) Smoking 01/03/2021 12:00:00 AM EDT Never Smoker completed Never S moker eCW1 ([facility]) Smoking 01/03/2021 12:00:00 AM EDT Never Smoker completed Never S moker eCW1 ([facility]) Smoking 12/31/2020 12:00:00 AM EDT Unknown if ever smoked comp leted Unknown if ever smoked [facility] ([facility]) Smoking 12/26/2020 12:00:00 AM EDT Unknown if ever smoked comp leted Unknown if ever smoked [facility] ([facility]) Smoking 12/12/2020 12:00:00 AM EDT Never Smoker completed Never S moker eCW1 ([facility]) Smoking 11/28/2020 12:00:00 AM EST Unknown if ever smoked comp leted Unknown if ever smoked [facility] ([facility]) Smoking 11/06/2020 12:00:00 AM EST Unknown if ever smoked comp leted Unknown if ever smoked [facility] ([facility]) Smoking 10/29/2020 12:00:00 AM EST Never Smoker completed Never S moker eCW1 ([facility]) Smoking 10/29/2020 12:00:00 AM EST Never Smoker completed Never S moker eCW1 ([facility]) Smoking 10/24/2020 12:00:00 AM EST Never Smoker completed Never S moker eCW1 ([facility]) Smoking 10/09/2020 12:00:00 AM EST Unknown if ever smoked comp leted Unknown if ever smoked [facility] ([facility]) Smoking 09/04/2020 12:00:00 AM EST Unknown if ever smoked comp leted Unknown if ever smoked [facility] ([facility]) Smoking 07/24/2020 12:00:00 AM EST Unknown if ever smoked comp leted Unknown if ever smoked [facility] ([facility]) Smoking 07/05/2020 12:00:00 AM EDT Unknown if ever smoked comp leted Unknown if ever smoked [facility] ([facility]) Smoking 05/31/2020 12:00:00 AM EDT Unknown if ever smoked comp leted Unknown if ever smoked [facility] ([facility]) Vital Signs ID Date Data Source UNK Name Value Range Interpretation Code Description Data Source(s) Body weight 158.6 [lb_av] 158.6 [lb_av] eCW1 ([facility]) Body weight 71.94 kg 71.94 kg W1 ([facility]) Body height 60 [in_i] 60 [in_i] W1 ([facility]) Body mass index (BMI) [Ratio] 30.97 kg/m2 30.97 kg/m2 [facility] ([facility]) Systolic blood pressure 106 mm[Hg] 106 mm[Hg] e CW1 ([facility]) Diastolic blood pressure 68 mm[Hg] 68 mm[Hg] eCW1 ([facility]) Body mass index (BMI) [Ratio] 0.00 kg/m2 No rmal (applies to non-numeric results) 0.00 [facility]) Body height 0.00 in Normal (applies to non-numeric resu lts) 0.00 in [facility] ([facility]) Body weight Measured 0.00 lbs Normal (applies to n on-numeric results) 0.00 lbs [facility] ([facility]) Systolic blood pressure 0 mm[Hg] Normal (applies t o non-numeric results) 0 mm[Hg] [facility] ([facility]) Diastolic blood pressure 0 mm[Hg] Normal (applies to non-numeric results) 0 mm[Hg] [facility] ([facility]) Body weight 158 [lb_av] 158 [lb_av] eCW1 ([facility]) Body height 60 [in_i] 60 [in_i] eCW1 ([facility]) Body mass index (BMI) [Ratio] 30.85 kg/m2 30.85 kg/m2 eCW1 ([facility]) Systolic blood pressure 116 mm[Hg] 116 mm[Hg] e CW1 ([facility]) Diastolic blood pressure 70 mm[Hg] 70 mm[Hg] eCW1 ([facility]) Body height 0.00 in Normal (applies to non-numeric resu lts) 0.00 in [facility]) Body weight Measured 0.00 lbs Normal (applies to n on-numeric results) 0.00 lbs [facility] ([facility]) Body mass index (BMI) [Ratio] 0.00 kg/m2 No rmal (applies to non-numeric results) 0.00 kg/m2 [facility] ([facility]) Systolic blood pressure 0 mm[Hg] Normal (applies t o non-numeric results) 0 mm[Hg] [facility] ([facility]) Diastolic blood pressure 0 mm[Hg] Normal (applies to non-numeric results) 0 mm[Hg] [facility] ([facility]) Body weight 161 [lb_av] 161 [lb_av] eCW1 ([facility]) Body weight 73.03 kg 73.03 kg eCW1 ([facility]) Body height 60 [in_i] 60 [in_i] eCW1 ([facility]) Body mass index (BMI) [Ratio] 31.44 kg/m2 31.44 kg/m2 W1 ([facility]) Systolic blood pressure 114 mm[Hg] 114 mm[Hg] e CW1 ([facility]) Diastolic blood pressure 70 mm[Hg] 70 mm[Hg] eCW1 ([facility]) Body weight 161.2 [lb_av] 161.2 [lb_av] eCW1 ([facility]) Body weight 73.12 kg 73.12 kg eCW1 ([facility]) Body height 60 [in_i] 60 [in_i] eCW1 ([facility]) Body mass index (BMI) [Ratio] 31.48 kg/m2 31.48 kg/m2 eCW1 ([facility]) Systolic blood pressure 110 mm[Hg] 110 mm[Hg] e CW1 ([facility]) Diastolic blood pressure 72 mm[Hg] 72 mm[Hg] eCW1 ([facility]) Body height 0.00 in Normal (applies to non-numeric resu lts) 0.00 in [facility] ([facility]) Body weight Measured 0.00 lbs Normal (applies to n on-numeric results) 0.00 lbs [facility] ([facility]) Body mass index (BMI) [Ratio] 0.00 kg/m2 No rmal (applies to non-numeric results) 0.00 kg/m2 [facility] ([facility]) Systolic blood pressure 0 mm[Hg] Normal (applies t o non-numeric results) 0 mm[Hg] [facility] ([facility]) Diastolic blood pressure 0 mm[Hg] Normal (applies to non-numeric results) 0 mm[Hg] [facility] ([facility]) Body height 0.00 in Normal (applies to non-numeric resu lts) 0.00 in [facility] ([facility]) Body weight Measured 0.00 lbs Normal (applies to n on-numeric results) 0.00 lbs [facility] ([facility]) Body mass index (BMI) [Ratio] 0.00 kg/m2 No rmal (applies to non-numeric results) 0.00 kg/m2 [facility] ([facility]) Systolic blood pressure 0 mm[Hg] Normal (applies t o non-numeric results) 0 mm[Hg] [facility] ([facility]) Diastolic blood pressure 0 mm[Hg] Normal (applies to non-numeric results) 0 mm[Hg] [facility] ([facility]) Body height 0.00 in Normal (applies to non-numeric resu lts) 0.00 in [facility] ([facility]) Body weight Measured 0.00 lbs Normal (applies to n on-numeric results) 0.00 lbs [facility] ([facility]) Body mass index (BMI) [Ratio] 0.00 kg/m2 No rmal (applies to non-numeric results) 0.00 kg/m2 [facility] ([facility]) Systolic blood pressure 0 mm[Hg] Normal (applies t o non-numeric results) 0 mm[Hg] [facility] ([facility]) Diastolic blood pressure 0 mm[Hg] Normal (applies to non-numeric results) 0 mm[Hg] [facility]) Body height 0.00 in Normal (applies to non-numeric resu lts) 0.00 in [facility] ([facility]) Body weight Measured 0.00 lbs Normal (applies to n on-numeric results) 0.00 lbs [facility] ([facility]) Body mass index (BMI) [Ratio] 0.00 kg/m2 No rmal (applies to non-numeric results) 0.00 kg/m2 [facility] ([facility]) Systolic blood pressure 0 mm[Hg] Normal (applies t o non-numeric results) 0 mm[Hg] [facility] ([facility]) Diastolic blood pressure 0 mm[Hg] Normal (applies to non-numeric results) 0 mm[Hg] [facility] ([facility]) Patient Treatment Plan of Care Planned Activity Planned Date Details Description Data Source (s) Acetaminophen 325 MG / Oxycodone Hydrochloride 5 MG Or al Tablet [Percocet] 01/04/2021 12:00:00 AM EDT eCW1 ([facility]) Ibuprofen 800 MG Oral Tablet 01/04/2021 12:00:00 AM EDT eCW1 ([facility]) Acetaminophen 325 MG / Oxycodone Hydrochloride 5 MG Or al Tablet [Percocet] 01/04/2021 12:00:00 AM EDT eCW1 ([facility]) Ibuprofen 800 MG Oral Tablet 01/04/2021 12:00:00 AM EDT eCW1 ([facility])
--- OUTSIDE RECORDS SUMMARY | 2021-07-05 16:05 | CCD ---
Author Author [facility] Organization [facility] Address Unknown Phone Unavailable Care Team Providers Care Hatchery Man Name Role Phone Renée Mcdaniels Unavailable BLISS, G EDWARD RPA Unavailable Unavailable BLISS, G EDWARD RPA Unavailable Unavailable BLISS, G EDWARD RPA Unavailable Unavailable BLISS, G EDWARD RPA Unavailable Unavailable BLISS, G EDWARD RPA Unavailable Unavailable BLSIS, G EDWARD RPA Unavailable Unavailable BLISS, G [...] EDWARD RPA Unavailable Unavailable REAL, H SHEILA CUSHION INSTALLER Unavailable Unavailable REAL, H SHEILA CUSHION INSTALLER Unavailable Unavailable REAL, H SEHILA CUSHION INSTALLER Unavailable Unavailable REAL, H SHEILA CUSHION INSTALLER Unavailable Unavailable REAL, H SHEILA CUSHION INSTALLER Unavailable Unavailable REAL, H SHEILA CUSHION INSTALLER Unavailable Unavailable REAL, H SHEILA CUSHION INSTALLER Unavailable Unavailable REAL, H SHEILA CUSHION INSTALLER Unavailable Unavailable REAL, H SHEILA CUSHION INSTALLER Unavailable Unavailable GoutremClarita koch Unavailable Rohan, M [...] Unavailable Madrigal, M Christopher PA-C Unavailable Unavailable MadrigalNasir Crow BLACK Unavailable Unavailable MadrigalNasir Crow BLACK Unavailable Unavailable Nasir Madrigal Crow BLACK Unavailable Unavailable Re-disclosure Warning The [...] is protected by Article 27-F of the [facility] Public Health law. If you continue you may have access to information: Regarding HIV / AIDS; Provided by facilities licensed or operated by the [facility] Office of Mental Health; or Provided by the [facility] Office for People With Developmental Disabilities. If such information is present, then the following [facility] mandated warning applies: This information has been [...] law may result in a fine or snf sentence or both. A general authorization for the release of medical or other information is NOT sufficient authorization for further disc losure. Allergies and Adverse Reactions Type Description Substance Reaction Status Data Source(s ) Propensity to adverse reactions to substance ziprasidone hcl ziprasidone 20 MG Oral Capsule Active [facility] ([facility]) Encounters Encounter Providers Location Date Indications Data Source(s ) Brief Individual Psychotherapy - 30 min Attender: Renée de leon [facility] Custodial 05/16/2021 11:30:00 AM EDT - 05/16/2021 11:30:00 AM EDT [facility] ([facility]) Attender: Renée Mcdaniels 05/16/2021 12:00:00 AM E DT [facility] ([facility]) Outpatient Attender: ALEX BLISS RPA 04/13 11:31:32 AM EDT - 04/13/2021 01:45:11 PM EDT [facility] ([facility] ) Outpatient Attender: Crow Madrigal PA-C 03/27/2021 02:41:31 PM EDT - 03/27/2021 04:16:46 PM EDT [facility] ([facility]) Attender: Clarita Gordon 02/11/2021 12:00:0 0 AM EDT [facility] ([facility]) Extended Individual Psychotherapy - 45 min Attender: Iris davalos [facility] 02/08/2021 02:45:00 AM EDT - 02/08/2021 02:45:00 AM EDT [facility] ([facility]) Extended Individual Psychotherapy - 45 min Attender: Iris davalos [facility] 01/24/2021 02:45:00 AM EDT - 01/24/2021 02:45:00 AM EDT [facility] ([facility]) Attender: Clarita Gordon 01/24/2021 12:00:0 0 AM EDT [facility] ([facility]) (WC 15ESGYN) WCenter 15 min est host hostess [address] [place] [id number] 01/21/2021 12:00:00 AM EDT eCW1 ([facility]) Outpatient Attender: SHEILA LUNSFORD NP [facility] Bhavin wanda 01/14/2021 01:00:00 AM EDT - 01/14/2021 01:00:00 AM EDT [facility] ([facility]) Attender: SHEILA LUNSFORD NP 01/14/2021 12:00:00 AM EDT [facility] ([facility]) Extended Individual Psychotherapy - 45 min [facility]/09[facility] 02:00:00 AM EDT - 01/09/2021 02:00:00 AM EDT [facility] ([facility]) Attender: Clarita Evan 01/09/2021 12:00:0 0 AM EDT [facility] ([facility]) Unknown [address] [facility] [address] 01/04/2021 12:00:00 AM EDT eCW1 ([facility]) (WC 15ESGYN) WCenter 15 min est host hostess [address] [place] [address] 01/03/2021 12:00:00 AM EDT eCW1 ([facility]) Unknown [address] [facility] [address] 01/02/2021 12:00:00 AM EDT eCW1 ([facility]) Outpatient Attender: SHEILA LUNSFORD NP [facility] muñoz 12/31/2020 10:30:00 AM EDT - 12/31/2020 10:30:00 AM EDT [facility] ([facility]) Attender: SHEILA LUNSFORD NP 12/31/2020 12:00:00 AM EDT [facility] ([facility]) Outpatient Attender: SHEILA LUNSFORD NP [facility] muñoz 12/26/2020 09:00:00 AM EDT - 12/26/2020 09:00:00 AM EDT [facility] ([facility]) Attender: SHEILA LUNSFORD NP 12/26/2020 12:00:00 AM EDT [facility] ([facility]) Outpatient Attender: SHEILA LUNSFORD NP [facility] muñoz 11/28/2020 03:30:00 AM EST - 11/28/2020 03:30:00 AM EST [facility] ([facility]) Attender: SHEILA LUNSFORD NP 11/28/2020 12:00:00 AM EST [facility] ([facility]) Outpatient Attender: SHEILA LUNSFORD NP [facility] muñoz 11/06/2020 03:00:00 AM EST - 11/06/2020 03:00:00 AM EST [facility] ([facility]) Attender: SHEILA LUNSFORD NP 11/06/2020 12:00:00 AM EST [facility] ([facility]) (WC 20ESGYN) WCenter 20 Min Est Manager Of Operations [address] [place] [address] 10/29/2020 12:00:00 AM EST eCW1 ([facility]) Unknown [address] [facility] [phone] 10/25/2020 12:00:00 AM EST eCW1 ([facility]) Outpatient [address] [facility] [address] 10/24/2020 12:00:00 AM EST eCW1 ([facility]) Outpatient Attender: SHEILA LUNSFORD NP [facility] wanda 10/09/2020 01:30:00 AM EST - 10/09/2020 01:30:00 AM EST [facility] ([facility]) Attender: SHEILA LUNSFORD NP 10/09/2020 12:00:00 AM EST [facility] ([facility]) Outpatient Attender: SHEILA LUNSFORD NP [facility] wanda 09/04/2020 04:00:00 AM EST - 09/04/2020 04:00:00 AM EST [facility] ([facility]) Attender: SHEILA LUNSFORD NP 09/04/2020 12:00:00 AM EST [facility] ([facility]) Outpatient Attender: SHEILA LUNSFORD NP [facility] wanda 07/24/2020 05:30:00 AM EST - 07/24/2020 05:30:00 AM EST [facility] ([facility]) Attender: SHEILA LUNSFORD NP 07/24/2020 12:00:00 AM EST [facility] ([facility]) Attender: SHEILA LUNSFORD NP 07/05/2020 12:00:00 AM EDT [facility] ([facility]) Outpatient Attender: SHEILA LUNSFORD NP [facility] l 07/04/2020 03:00:00 AM EDT - 07/04/2020 03:00:00 AM EDT [facility] ([facility]) Outpatient Attender: SHEILA LUNSFORD NP [facility] muñoz 05/31/2020 08:30:00 AM EDT - 05/31/2020 08:30:00 AM EDT [facility] ([facility]) Attender: SHEILA LUNSFORD NP 05/31/2020 12:00:00 AM EDT [facility] ([facility]) Functional Status Immunizations Vaccine Date Status Description Data Source(s) COVID-19 VACCINE Moderna 03/26/2021 12:00:00 AM EDT completed [place] Vaccine Series Complete: YESThis Data wa s Submitted to [facility] Via [facility]. COVID-19 VACCINE Pramod 02/07/2021 12:00:00 AM EDT completed [place] Vaccine Series Complete: YESThis Data wa s Submitted to [facility] Via [facility]. Medications Medication Brand Name Start Date Product [...] E DT suspended Ibuprofen 800 MG eCW1 ([facility]) Acetaminophen 325 MG / Oxycodone Hydroch loride 5 MG Oral Tablet [Percocet] Percocet 5-325 MG Percocet 5-325 MG 01/04/2021 12:00:00 AM EDT 1 .0 {tablet_as_needed} active Percocet 5-32 5 MG eCW1 ([facility]) Ibuprofen 800 MG Oral Tablet Ibuprofen 800 MG 01/04/2021 12:00:00 AM E DT active Ibuprofen 800 MG eCW1 ([facility]) Acetaminophen 325 MG / Oxycodone Hydroch loride 5 MG Oral Tablet [Percocet] Percocet 5-325 MG Percocet 5-325 MG 01/04/2021 12:00:00 AM EDT 1 .0 {tablet_as_needed} suspended Percocet 5- 325 MG eCW1 ([facility]) Ibuprofen 800 MG Oral Tablet Ibuprofen 800 MG 01/04/2021 12:00:00 AM E DT active Ibuprofen 800 MG eCW1 ([facility]) Acetaminophen 325 MG / Oxycodone Hydroch loride 5 MG Oral Tablet [Percocet] Percocet 5-325 MG Percocet 5-325 MG 01/04/2021 12:00:00 AM EDT 1 .0 {tablet_as_needed} active Percocet 5-32 5 MG eCW1 ([facility]) 400 mg 11/29/2020 12:00:00 AM EST capsule [...] 400 mg by mouth completed <td ID="Medica tionRxNorm_4">195937</td><td ID="MedicationMedication_4">gabapentin</td><td ID="MedicationRoute_4">by mouth</td><td ID="MedicationRouteConcept_4">C71779</td><td ID="MedicationStartDate_4">11/28/2020</td><td ID="MedicationStopDate_4">04/14/2021</td><td ID="MedicationDosageFrequency_4">three times a day</td><td ID="MedicationDuration_4">30</td><td ID="MedicationFormulaStrength_4">400 mg</td><td ID="MedicationDosageForm_4">capsule</td><td ID="MedicationDosageFormCode_4"></td><td ID="MedicationDosageDescription_4"> </td><td ID="MedicationMedicationId_4">[id number]</td><td ID="MedicationAccount_4">[id number]</td><td ID="MedicationNpid_4">[id number]</td><td ID="MedicationAuthorFirstName_4">Sheila</td><td ID="MedicationAuthorLastName_4">Real</td><td ID="MedicationTaxonomyCode_4">[id number]</td><td ID="MedicationTaxonomyDesc_4">Nurse Practitioner</td><td ID="MedicationPhoneNumber_4">[phone]</td> [facility] ([facility]) 24 HR Bupropion Hydrochloride 150 MG Extended Release Oral Tablet [Wellbutrin] Wellbutrin XL 11/28/2020 12:00:00 AM EST 150 mg by mouth co mpleted <td ID="MedicationRxNorm_2">739609</td><td ID="MedicationMedication_2">Wellbutrin XL</td><td ID="MedicationRoute_2">by mouth</td><td ID="MedicationRouteConcept_2">Z81614</td><td ID="MedicationStartDate_2">11/28/2020</td><td ID="MedicationStopDate_2">04/14/2021</td><td ID="MedicationDosageFrequency_2">every morning</td><td ID="MedicationDuration_2">30</td><td ID="MedicationFormulaStrength_2">150 mg</td><td ID="MedicationDosageForm_2">tablet extended release 24 hr</td><td ID="MedicationDosageFormCode_2"></td><td ID="MedicationDosageDescription_2"></td><td ID="MedicationMedicationId_2">[id number]</td><td ID="MedicationAccount_2">[id number]</td><td ID="MedicationNpid_2">[id number]</td><td ID="MedicationAuthorFirstName_2">Sheila</td><td ID="MedicationAuthorLastName_2">Real</td><td ID="MedicationTaxonomyCode_2">[id number]</td><td ID="MedicationTaxonomyDesc_2"> Nurse Practitioner</td><td ID="MedicationPhoneNumber_2">[phone]</td> [facility] ([facility]) lamotrigine 25 MG Oral Tablet [Lamictal] Lamictal 11/28/2020 12 :00:00 AM EST 25 mg by mouth completed <td ID="Me dicationRxNorm_1">513857</td><td ID="MedicationMedication_1">Lamictal</td><td ID="MedicationRoute_1">by mouth</td><td ID="MedicationRouteConcept_1">D10759</td><td ID="MedicationStartDate_1">11/28/2020</td><td ID="MedicationStopDate_1">04/14/2021</td><td ID="MedicationDosageFrequency_1">once a day</td><td ID="MedicationDuration_1">30</td><td ID="MedicationFormulaStrength_1">25 mg</td><td ID="MedicationDosageForm_1">tablet</td><td ID="MedicationDosageFormCode_1"></td><td ID="MedicationDosageDescription_1"></td><td ID="MedicationMedicationId_1">[id number]</td><td ID="MedicationAccount_1">[id number]</td><td ID="MedicationNpid_1">[id number]</td><td ID="MedicationAuthorFirstName_1">Sheila</td><td ID="MedicationAuthorLastName_1">Real</td><td ID="MedicationTaxonomyCode_1">[id number]</td><td ID="MedicationTaxonomyDesc_1">Nurse Practitioner</td><td ID="MedicationPhoneNumber_1">[phone]</td> [facility] ([facility]) Melatonin 10 MG Oral Tablet melatonin 11/28/2020 12:00:00 AM EST 10 mg by mouth completed <td ID="Medica tionRxNorm_3">[id number]</td><td ID="MedicationMedication_3">melatonin</td><td ID="MedicationRoute_3">by mouth</td><td ID="MedicationRouteConcept_3">C51672</td><td ID="MedicationStartDate_3">11/28/2020</td><td ID="MedicationStopDate_3">04/14/2021</td><td ID="MedicationDosageFrequency_3">at bedtime</td><td ID="MedicationDuration_3">30</td><td ID="MedicationFormulaStrength_3">10 mg</td><td ID="MedicationDosageForm_3">tablet</td><td ID="MedicationDosageFormCode_3"></td><td ID="MedicationDosageDescription_3"></td><td ID="MedicationMedicationId_3">[id number]</td><td ID="MedicationAccount_3">[id number]</td><td ID="MedicationNpid_3">[id number]</td><td ID="MedicationAuthorFirstName_3">Sheila</td><td ID="MedicationAuthorLastName_3">Real</td><td ID="MedicationTaxonomyCode_3">[id number]</td><td ID="MedicationTaxonomyDesc_3">Nurse Practitioner</td><td ID="MedicationPhoneNumber_3">[phone]</td> [facility] ([facility]) 600 mg 11/06/2020 12:00:00 AM EST [...] 150 mg by mouth co mpleted <td ID="MedicationRxNorm_3">024607</td><td ID="MedicationMedication_3">Wellbutrin XL</td><td ID="MedicationRoute_3">by mouth</td><td ID="MedicationRouteConcept_3">N37390</td><td ID="MedicationStartDate_3">07/24/2020</td><td ID="MedicationStopDate_3">11/03/2020</td><td ID="MedicationDosageFrequency_3">every morning</td><td ID="MedicationDuration_3">30</td><td ID="MedicationFormulaStrength_3">150 mg</td><td ID="MedicationDosageForm_3">tablet extended release 24 hr</td><td ID="MedicationDosageFormCode_3"></td><td ID="MedicationDosageDescription_3"></td><td ID="MedicationMedicationId_3">[id number]</td><td ID="MedicationAccount_3">[id number]</td><td ID="MedicationNpid_3">[id number]</td><td ID="MedicationAuthorFirstName_3">Sheila</td><td ID="MedicationAuthorLastName_3">Real</td><td ID="MedicationTaxonomyCode_3">[id number]</td><td ID="MedicationTaxonomyDesc_3"> Nurse Practitioner</td><td ID="MedicationPhoneNumber_3">[phone]</td> [facility] ([facility]) gabapentin 400 MG Oral Capsule gabapentin 07/24/2020 12:00:00 AM EST 400 mg by mouth completed <td ID="Medica tionRxNorm_1">267986</td><td ID="MedicationMedication_1">gabapentin</td><td ID="MedicationRoute_1">by mouth</td><td ID="MedicationRouteConcept_1">R42376</td><td ID="MedicationStartDate_1">07/24/2020</td><td ID="MedicationStopDate_1">11/03/2020</td><td ID="MedicationDosageFrequency_1">three times a day</td><td ID="MedicationDuration_1">30</td><td ID="MedicationFormulaStrength_1">400 mg</td><td ID="MedicationDosageForm_1">capsule</td><td ID="MedicationDosageFormCode_1"></td><td ID="MedicationDosageDescription_1"> </td><td ID="MedicationMedicationId_1">74583</td><td ID="MedicationAccount_1">[id number]</td><td ID="MedicationNpid_1">[id number]</td><td ID="MedicationAuthorFirstName_1">Sheila</td><td ID="MedicationAuthorLastName_1">Real</td><td ID="MedicationTaxonomyCode_1">[id number]</td><td ID="MedicationTaxonomyDesc_1">Nurse Practitioner</td><td ID="MedicationPhoneNumber_1">[phone]</td> [facility] ([facility]) gabapentin 400 MG Oral Capsule gabapentin 07/24/2020 12:00:00 AM EST 400 mg by mouth completed <td ID="Medica tionRxNorm_2">357335</td><td ID="MedicationMedication_2">gabapentin</td><td ID="MedicationRoute_2">by mouth</td><td ID="MedicationRouteConcept_2">C96679</td><td ID="MedicationStartDate_2">07/24/2020</td><td ID="MedicationStopDate_2">11/03/2020</td><td ID="MedicationDosageFrequency_2">three times a day</td><td ID="MedicationDuration_2">30</td><td ID="MedicationFormulaStrength_2">400 mg</td><td ID="MedicationDosageForm_2">capsule</td><td ID="MedicationDosageFormCode_2"></td><td ID="MedicationDosageDescription_2"> </td><td ID="MedicationMedicationId_2">[id number]</td><td ID="MedicationAccount_2">[id number]</td><td ID="MedicationNpid_2">[id number]</td><td ID="MedicationAuthorFirstName_2">Sheila</td><td ID="MedicationAuthorLastName_2">Real</td><td ID="MedicationTaxonomyCode_2">[id number]</td><td ID="MedicationTaxonomyDesc_2">Nurse Practitioner</td><td ID="MedicationPhoneNumber_2">[phone]</td> [facility] ([facility]) 400 mg 05/11/2020 12:00:00 AM EDT [...] 150 mg by mouth co mpleted <td ID="MedicationRxNorm_4">021958</td><td ID="MedicationMedication_4">Wellbutrin XL</td><td ID="MedicationRoute_4">by mouth</td><td ID="MedicationRouteConcept_4">I35429</td><td ID="MedicationStartDate_4">05/09/2020</td><td ID="MedicationStopDate_4">07/08/2020</td><td ID="MedicationDosageFrequency_4">every morning</td><td ID="MedicationDuration_4">30</td><td ID="MedicationFormulaStrength_4">150 mg</td><td ID="MedicationDosageForm_4">tablet extended release 24 hr</td><td ID="MedicationDosageFormCode_4"></td><td ID="MedicationDosageDescription_4"></td><td ID="MedicationMedicationId_4">06076</td><td ID="MedicationAccount_4">[id number]</td><td ID="MedicationNpid_4">[id number]</td><td ID="MedicationAuthorFirstName_4">Sheila</td><td ID="MedicationAuthorLastName_4">Real</td><td ID="MedicationTaxonomyCode_4">[id number]</td><td ID="MedicationTaxonomyDesc_4"> Nurse Practitioner</td><td ID="MedicationPhoneNumber_4">[phone]</td> [facility] ([facility]) Risperidone 0.5 MG Oral Tablet [Risperdal] Risperdal 05/09 12:00:00 AM EDT 0.5 mg by mouth completed <td ID="Medic ationRxNorm_1">267631</td><td ID="MedicationMedication_1">Risperdal</td><td ID="MedicationRoute_1">by mouth</td><td ID="MedicationRouteConcept_1">Q60525</td><td ID="MedicationStartDate_1">05/09/2020</td><td ID="MedicationStopDate_1">06/30/2020</td><td ID="MedicationDosageFrequency_1">at bedtime</td><td ID="MedicationDuration_1">30</td><td ID="MedicationFormulaStrength_1">0.5 mg</td><td ID="MedicationDosageForm_1">tablet</td><td ID="MedicationDosageFormCode_1"></td><td ID="MedicationDosageDescription_1"></td><td ID="MedicationMedicationId_1">71543</td><td ID="MedicationAccount_1">[id number]</td><td ID="MedicationNpid_1">[id number]</td><td ID="MedicationAuthorFirstName_1">Sheila</td><td ID="MedicationAuthorLastName_1">Real</td><td ID="MedicationTaxonomyCode_1">[id number]</td><td ID="MedicationTaxonomyDesc_1">Nurse Practitioner</td><td ID="MedicationPhoneNumber_1">[phone]</td> [facility] ([facility]) Melatonin 10 MG Oral Tablet melatonin 02/07/2020 12:00:00 AM EDT 10 mg by mouth completed <td ID="Medica tionRxNorm_2">6893464</td><td ID="MedicationMedication_2">melatonin</td><td ID="MedicationRoute_2">by mouth</td><td ID="MedicationRouteConcept_2">H90452</td><td ID="MedicationStartDate_2">02/07/2020</td><td ID="MedicationStopDate_2">07/08/2020</td><td ID="MedicationDosageFrequency_2">at bedtime</td><td ID="MedicationDuration_2">30</td><td ID="MedicationFormulaStrength_2">10 mg</td><td ID="MedicationDosageForm_2">tablet</td><td ID="MedicationDosageFormCode_2"></td><td ID="MedicationDosageDescription_2"></td><td ID="MedicationMedicationId_2">73072</td><td ID="MedicationAccount_2">[id number]</td><td ID="MedicationNpid_2">[id number]</td><td ID="MedicationAuthorFirstName_2">Sheila</td><td ID="MedicationAuthorLastName_2">Real</td><td ID="MedicationTaxonomyCode_2">[id number]</td><td ID="MedicationTaxonomyDesc_2">Nurse Practitioner</td><td ID="MedicationPhoneNumber_2">[phone]</td> [facility] ([facility]) Melatonin 10 MG Oral Tablet melatonin 02/07/2020 12:00:00 AM EDT 10 mg by mouth completed <td ID="Medica tionRxNorm_4">9831577</td><td ID="MedicationMedication_4">melatonin</td><td ID="MedicationRoute_4">by mouth</td><td ID="MedicationRouteConcept_4">R41829</td><td ID="MedicationStartDate_4">02/07/2020</td><td ID="MedicationStopDate_4">05/19/2020</td><td ID="MedicationDosageFrequency_4">at bedtime</td><td ID="MedicationDuration_4">30</td><td ID="MedicationFormulaStrength_4">10 mg</td><td ID="MedicationDosageForm_4">tablet</td><td ID="MedicationDosageFormCode_4"></td><td ID="MedicationDosageDescription_4"></td><td ID="MedicationMedicationId_4">[id number]</td><td ID="MedicationAccount_4">[id number]</td><td ID="MedicationNpid_4">[id number]</td><td ID="MedicationAuthorFirstName_4">Sheila</td><td ID="MedicationAuthorLastName_4">Real</td><td ID="MedicationTaxonomyCode_4">[id number]</td><td ID="MedicationTaxonomyDesc_4">Nurse Practitioner</td><td ID="MedicationPhoneNumber_4">[phone]</td> [facility] ([facility]) gabapentin 400 MG Oral Capsule gabapentin 11/24/2019 12:00:00 AM EST 400 mg by mouth completed <td ID="Medica tionRxNorm_3">156756</td><td ID="MedicationMedication_3">gabapentin</td><td ID="MedicationRoute_3">by mouth</td><td ID="MedicationRouteConcept_3">K98502</td><td ID="MedicationStartDate_3">11/24/2019</td><td ID="MedicationStopDate_3">05/19/2020</td><td ID="MedicationDosageFrequency_3">three times a day</td><td ID="MedicationDuration_3">30</td><td ID="MedicationFormulaStrength_3">400 mg</td><td ID="MedicationDosageForm_3">capsule</td><td ID="MedicationDosageFormCode_3"></td><td ID="MedicationDosageDescription_3"> </td><td ID="MedicationMedicationId_3">12602</td><td ID="MedicationAccount_3">[id number]</td><td ID="MedicationNpid_3">[id number]</td><td ID="MedicationAuthorFirstName_3">Sheila</td><td ID="MedicationAuthorLastName_3">Real</td><td ID="MedicationTaxonomyCode_3">[id number]</td><td ID="MedicationTaxonomyDesc_3">Nurse Practitioner</td><td ID="MedicationPhoneNumber_3">[phone]</td> [facility] ([facility]) Insurance Providers Payer name Policy type / Coverage type Policy ID Covered alliance party ID Covered alliance party's relationship to holland Policy [place] Plan Information [employer] Blue [employer] - [place] Blue Cross/B lue Shield [id number] Self [id number] [employer] [id number] Self [id number] YOSELIN [facility] O [id number] S [id number] [place] PPO 302/[id number] SP [id number] [place] PPO 302/[id number] SP [id number] Medicaid [place] Medicaid [id number] Self SELF PAY UNAVAILABLE SP UNAVAILA BLE MEDICAID [id number] SP [id number] MEDICAID S [id number] S [id number] [facility](MCA[facility]) P [id number] S [id number] YOSELIN [id number] SP [id number] YOSELIN [id number] SP [id number] Problems, Conditions, and Diagnoses Code Display Name Description Problem Type Effective Dates Data Source(s) F12.10 Cannabis abuse, uncomplicated Cannabis Use Disorder, M ild Condition 05/16/2021 12:00:00 AM EDT [facility] ([facility]) F41.1 Generalized anxiety disorder Generalized Anxiety Disor chito Condition 05/16/2021 12:00:00 AM EDT [facility] ([facility]) F31.81 Bipolar II disorder Bipolar II Disorder Condition 0 05/16/2021 12:00:00 AM EDT [facility] ([facility]) F33.2 Major depressive disorder, 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 Major Depressive Disorder, Recurrent episode, Severe Condition 0 05/16/2021 12:00:00 AM EDT [facility] ([facility]) Surgeries/Procedures Procedure Description Date Indications Data Source(s) Brief Individual Psychotherapy - 30 min 05/16/2021 12:00:00 AM EDT - 05/16/2021 12:00:00 AM EDT [facility] ([facility]) Brief Individual Psychotherapy - 30 min 05/16/2021 12: 00:00 AM EDT [facility] ([facility]) Extended Individual Psychotherapy - 45 min 02/11/2021 12:00:00 AM EDT - 02/11/2021 12:00:00 AM EDT [facility] ([facility]) Extended Individual Psychotherapy - 45 min 12:00:00 AM EDT [facility] ([facility]) Extended Individual Psychotherapy - 45 min 01/24/2021 12:00:00 AM EDT - 01/24/2021 12:00:00 AM EDT [facility] ([facility]) Extended Individual Psychotherapy - 45 min 12:00:00 AM EDT [facility] ([facility]) OFFICE OUTPATIENT VISIT 15 MINUTES 01/14 12:00:00 AM EDT - 01/14/2021 12:00:00 AM EDT [facility] ([facility]) OFFICE OUTPATIENT VISIT 15 MINUTES 01/14/2021 12:00:00 AM EDT [facility] ([facility]) Extended Individual Psychotherapy - 45 min 01/09/2021 12:00:00 AM EDT - 01/09/2021 12:00:00 AM EDT [facility] ([facility]) Extended Individual Psychotherapy - 45 min 12:00:00 AM EDT [facility] ([facility]) OFFICE OUTPATIENT VISIT 15 MINUTES 12/31 12:00:00 AM EDT - 12/31/2020 12:00:00 AM EDT [facility] ([facility]) OFFICE OUTPATIENT VISIT 15 MINUTES 12/31/2020 12:00:00 AM EDT [facility] ([facility]) OFFICE OUTPATIENT VISIT 15 MINUTES 12/26 12:00:00 AM EDT - 12/26/2020 12:00:00 AM EDT [facility] ([facility]) OFFICE OUTPATIENT VISIT 15 MINUTES 12/26/2020 12:00:00 AM EDT [facility] ([facility]) OFFICE OUTPATIENT VISIT 15 MINUTES 11/28 12:00:00 AM EST - 11/28/2020 12:00:00 AM EST [facility] ([facility]) OFFICE OUTPATIENT VISIT 15 MINUTES 11/28/2020 12:00:00 AM EST [facility] ([facility]) [facility] [place] Lvl 3--Est pt 11/06/2020 12:00:00 AM EST - 11/06/2020 12:00:00 AM EST [facility] ([facility]) [facility] Telemed E/M Lvl 3--Est pt 11/06/2020 12:00:[address] [facility] ([facility]) [facility] Telemed E/M Lvl 3--Est pt 10/09/2020 12:00:00 AM EST - 10/09/2020 12:00:00 AM EST [facility] ([facility]) Psychotherapy ADD ON - 30 Minutes 10/09/2020 12:00:00 AM EST [facility] ([facility]) [facility] Telemed E/M Lvl 3--Est pt 10/09/2020 12:00:[address] [facility] ([facility]) OFFICE OUTPATIENT VISIT 15 MINUTES 09/04 12:00:00 AM EST - 09/04/2020 12:00:00 AM EST [facility] ([facility]) Psychotherapy ADD ON - 30 Minutes 09/04/2020 12:00:00 AM EST [facility] ([facility]) OFFICE OUTPATIENT VISIT 15 MINUTES 09/04/2020 12:00:00 AM EST [facility] ([facility]) OFFICE OUTPATIENT VISIT 15 MINUTES 07/24 12:00:00 AM EST - 07/24/2020 12:00:00 AM EST [facility] ([facility]) Psychotherapy ADD ON - 45 Min 07/24/2020 12:00:[address] [facility] ([facility]) OFFICE OUTPATIENT VISIT 15 MINUTES 07/24/2020 12:00:00 AM EST [facility] ([facility]) [facility] Telemed E/M Lvl 3--Est pt 07/05/2020 12:00:00 AM EDT - 07/05/2020 12:00:00 AM EDT [facility] ([facility]) [facility] Telemed E/M Lvl 3--Est pt 07/04/2020 12:00:00 AM E DT [facility] ([facility]) [facility] Telemed E/M Lvl 3--Est pt 05/31/2020 12:00:00 AM EDT - 05/31/2020 12:00:00 AM EDT [facility] ([facility]) [facility] Telemed E/M Lvl 3--Est pt 05/31/2020 12:00:00 AM E DT [facility] ([facility]) Results ID Date Data Source [id number] 04/13/2021 01:00:00 PM EDT [facility] Name Value Range Interpretation Code Description Data Jenn rce(s) Supporting Document(s) SARS-CoV-2 RNA Resp Ql LENNY+probe NOT DETECTED [facility] This lab was ordered by GIL villanueva and reported by GIL Hunt. ID Date Data Source [id number] 01/04/2021 09:59:00 AM EDT [facility] Name Value Range Interpretation Code Description Data Jenn rce(s) Supporting Document(s) SARS-CoV-2 (COVID 19) NEGATIVE - SARS-CoV-2 (COVID19) [facility] This lab was ordered by [facility] a nd reported by [facility]. ID Date Data Source [id number] 12/26/2020 12:00:00 AM EDT [facility] Name Value Range Interpretation Code Description Data Jenn rce(s) Supporting Document(s) SARS-CoV2 Rapid Antigen Negative [facility] This lab was ordered by [facility] and reported by [facility]. ID Date Data Source [id number] 10/31/2020 12:00:00 PM EST [facility] Name Value Range Interpretation Code Description Data Jenn rce(s) Supporting Document(s) SARS coronavirus 2 [facility] Not Detected [facility] was ordered by [facility] and reported by [facility]. Procedure Social History Code Duration Value Status Description Data Source(s ) Smoking 05/16/2021 12:00:00 AM EDT Unknown if ever smoked comp leted Unknown if ever smoked [facility] ([facility]) Smoking 02/11/2021 12:00:00 AM EDT Unknown if ever smoked comp leted Unknown if ever smoked [facility] ([facility]) Smoking 01/24/2021 12:00:00 AM EDT Unknown if ever smoked comp leted Unknown if ever smoked [facility] ([facility]) Smoking 01/21/2021 12:00:00 AM EDT Never Smoker completed Never S moker eCW1 ([facility]) Smoking 01/14/2021 12:00:00 AM EDT Unknown if ever smoked comp leted Unknown if ever smoked [facility] ([facility]) Smoking 01/09/2021 12:00:00 AM EDT Unknown if ever smoked comp leted Unknown if ever smoked [facility] ([facility]) Smoking 01/03/2021 12:00:00 AM EDT Never Smoker completed Never S moker eCW1 ([facility]) Smoking 01/03/2021 12:00:00 AM EDT Never Smoker completed Never S moker eCW1 ([facility]) Smoking 12/31/2020 12:00:00 AM EDT Unknown if ever smoked comp leted Unknown if ever smoked [facility] ([facility]) Smoking 12/26/2020 12:00:00 AM EDT Unknown if ever smoked comp leted Unknown if ever smoked [facility] ([facility]) Smoking 12/12/2020 12:00:00 AM EDT Never Smoker completed Never S moker eCW1 ([facility]) Smoking 11/28/2020 12:00:00 AM EST Unknown if ever smoked comp leted Unknown if ever smoked [facility] ([facility]) Smoking 11/06/2020 12:00:00 AM EST Unknown if ever smoked comp leted Unknown if ever smoked [facility] ([facility]) Smoking 10/29/2020 12:00:00 AM EST Never Smoker completed Never S moker eCW1 ([facility]) Smoking 10/29/2020 12:00:00 AM EST Never Smoker completed Never S moker eCW1 ([facility]) Smoking 10/24/2020 12:00:00 AM EST Never Smoker completed Never S moker eCW1 ([facility]) Smoking 10/09/2020 12:00:00 AM EST Unknown if ever smoked comp leted Unknown if ever smoked [facility] ([facility]) Smoking 09/04/2020 12:00:00 AM EST Unknown if ever smoked comp leted Unknown if ever smoked [facility] ([facility]) Smoking 07/24/2020 12:00:00 AM EST Unknown if ever smoked comp leted Unknown if ever smoked [facility] ([facility]) Smoking 07/05/2020 12:00:00 AM EDT Unknown if ever smoked comp leted Unknown if ever smoked [facility] ([facility]) Smoking 05/31/2020 12:00:00 AM EDT Unknown if ever smoked comp leted Unknown if ever smoked [facility] ([facility]) Vital Signs ID Date Data Source UNK Name Value Range Interpretation Code Description Data Source(s) Body weight 158.6 [lb_av] 158.6 [lb_av] W1 ([facility]) Body weight 71.94 kg 71.94 kg [facility] ([facility]) Body height 60 [in_i] 60 [in_i] eCW1 ([facility]) Body mass index (BMI) [Ratio] 30.97 kg/m2 30.97 kg/m2 [facility] ([facility]) Systolic blood pressure 106 mm[Hg] 106 mm[Hg] e CW1 ([facility]) Diastolic blood pressure 68 mm[Hg] 68 mm[Hg] W1 ([facility]) Body mass index (BMI) [Ratio] 0.00 kg/m2 No rmal (applies to non-numeric results) 0.00 kg/m2 [facility]) Body height 0.00 in Normal (applies to non-numeric resu lts) 0.00 in [facility] ([facility]) Body weight Measured 0.00 lbs Normal (applies to n on-numeric results) 0.00 lbs [facility] ([facility]) Systolic blood pressure 0 mm[Hg] Normal (applies t o non-numeric results) 0 mm[Hg] [facility] ([facility]) Diastolic blood pressure 0 mm[Hg] Normal (applies to non-numeric results) 0 mm[Hg] [facility] ([facility]) Body weight 158 [lb_av] 158 [lb_av] eCW1 (Replaced by [facility]) Body height 60 [in_i] 60 [in_i] eCW1 ([facility]) Body mass index (BMI) [Ratio] 30.85 kg/m2 30.85 kg/m2 eCW1 ([facility]) Systolic blood pressure 116 mm[Hg] 116 mm[Hg] e CW1 ([facility]) Diastolic blood pressure 70 mm[Hg] 70 mm[Hg] eCW1 ([facility]) Body height 0.00 in Normal (applies to non-numeric resu lts) 0.00 in [facility] ([facility]) Body weight Measured 0.00 lbs Normal (applies to n on-numeric results) 0.00 lbs [facility] ([facility]) Body mass index (BMI) [Ratio] 0.00 kg/m2 No rmal (applies to non-numeric results) 0.00 kg/m2 [facility] ([facility]) Systolic blood pressure 0 mm[Hg] Normal (applies t o non-numeric results) 0 mm[Hg] [facility] ([facility]) Diastolic blood pressure 0 mm[Hg] Normal (applies to non-numeric results) 0 mm[Hg] [facility] ([facility]) Body weight 73.03 kg 73.03 kg eCW1 ([facility]) Body weight 161 [lb_av] 161 [lb_av] eCW1 (Replaced by [facility]) Body height 60 [in_i] 60 [in_i] eCW1 ([facility]) Body mass index (BMI) [Ratio] 31.44 kg/m2 31.44 kg/m2 eCW1 ([facility]) Systolic blood pressure 114 mm[Hg] 114 mm[Hg] e CW1 ([facility]) Diastolic blood pressure 70 mm[Hg] 70 mm[Hg] eCW1 ([facility]) Body weight 161.2 [lb_av] 161.2 [lb_av] eCW1 ([facility]) Body weight 73.12 kg 73.12 kg eCW1 ([facility]) Body height 60 [in_i] 60 [in_i] W1 ([facility]) Body mass index (BMI) [Ratio] 31.48 kg/m2 31.48 kg/m2 eCW1 ([facility]) Systolic blood pressure 110 mm[Hg] 110 mm[Hg] e CW1 ([facility]) Diastolic blood pressure 72 mm[Hg] 72 mm[Hg] eCW1 ([facility]) Body height 0.00 in Normal (applies to non-numeric resu lts) 0.00 in [facility] ([facility]) Body weight Measured 0.00 lbs Normal (applies to n on-numeric results) 0.00 lbs [facility] ([facility]) Body mass index (BMI) [Ratio] 0.00 kg/m2 No rmal (applies to non-numeric results) 0.00 kg/m2 [facility] ([facility]) Systolic blood pressure 0 mm[Hg] Normal (applies t o non-numeric results) 0 mm[Hg] [facility] ([facility]) Diastolic blood pressure 0 mm[Hg] Normal (applies to non-numeric results) 0 mm[Hg] [facility] ([facility]) Body height 0.00 in Normal (applies to non-numeric resu lts) 0.00 in [facility] ([facility]) Body weight Measured 0.00 lbs Normal (applies to n on-numeric results) 0.00 lbs [facility] ([facility]) Body mass index (BMI) [Ratio] 0.00 kg/m2 No rmal (applies to non-numeric results) 0.00 kg/m2 [facility] ([facility]) Systolic blood pressure 0 mm[Hg] Normal (applies t o non-numeric results) 0 mm[Hg] [facility] ([facility]) Diastolic blood pressure 0 mm[Hg] Normal (applies to non-numeric results) 0 mm[Hg] [facility] ([facility]) Body height 0.00 in Normal (applies to non-numeric resu lts) 0.00 in [facility] ([facility]) Body weight Measured 0.00 lbs Normal (applies to n on-numeric results) [facility] Body mass index (BMI) [Ratio] 0.00 kg/m2 No rmal (applies to non-numeric results) 0.00 kg/m2 [facility] ([facility]) Systolic blood pressure 0 mm[Hg] Normal (applies t o non-numeric results) 0 mm[Hg] [facility] ([facility]) Diastolic blood pressure 0 mm[Hg] Normal (applies to non-numeric results) 0 mm[Hg] [facility]) Body height 0.00 in Normal (applies to non-numeric resu lts) 0.00 in [facility] ([facility]) Body weight Measured 0.00 lbs Normal (applies to n on-numeric results) 0.00 lbs [facility] ([facility]) Body mass index (BMI) [Ratio] 0.00 kg/m2 No rmal (applies to non-numeric results) 0.00 kg/m2 [facility] ([facility]) Systolic blood pressure 0 mm[Hg] Normal (applies t o non-numeric results) 0 mm[Hg] [facility] ([facility]) Diastolic blood pressure 0 mm[Hg] Normal (applies to non-numeric results) 0 mm[Hg] [facility] ([facility]) Patient Treatment Plan of Care Planned Activity Planned Date Details Description Data Source (s) Acetaminophen 325 MG / Oxycodone Hydrochloride 5 MG Or al Tablet [Percocet] 01/04/2021 12:00:00 AM EDT eCW1 ([facility]) Ibuprofen 800 MG Oral Tablet 01/04/2021 12:00:00 AM EDT eCW1 ([facility]) Acetaminophen 325 MG / Oxycodone Hydrochloride 5 MG Or al Tablet [Percocet] 01/04/2021 12:00:00 AM EDT eCW1 ([facility]) Ibuprofen 800 MG Oral Tablet 01/04/2021 12:00:00 AM EDT eCW1 ([facility])
== END 2021-07-05 15:50 | disposition left against medical advice (07) ==
LOC: M ED 12:45
DX: Z53.21 Procedure and treatment not carried out due to patient leaving prior to being seen by health care provider (principal)

== ENCOUNTER → 2022-07-21 | Outpatient (REF) | payer OTHER ==
[2022-07-21 17:55] LABS: BASO # 0.1 10^3/uL (0.0-0.2); BASO % 0.8 % (0.0-1.0); EOS # 0.1 10^3/uL (0.0-0.5); EOS % 1.7 % (0.0-3.0); HEMATOCRIT 46.2 % (36.0-47.0); LYMPH % 33.2 % (24.0-44.0); MEAN CORPUSCULAR HEMOGLOBIN 29.6 pg (27.0-33.0); MEAN CORPUSCULAR HGB CONC 32.5 g/dl (32.0-36.5); MEAN CORPUSCULAR VOLUME 91.3 fl (80.0-96.0); MONO # 0.4 10^3/uL (0.0-0.8); NEUTROPHILS # 3.4 10^3/uL (1.5-8.5); NEUTROPHILS % 56.8 % (36.0-66.0); PLATELET COUNT, AUTOMATED 174 10^3/uL (150-450); RED BLOOD COUNT 5.06 10^6/uL (4.00-5.40)
[2022-07-21 18:44] LABS: ALBUMIN 3.6 GM/DL (3.2-5.2); ALT/SGPT 97 U/L (12-78); BILIRUBIN,TOTAL 0.4 MG/DL (0.2-1.0); BLOOD UREA NITROGEN 11 MG/DL (7-18); CARBON DIOXIDE LEVEL 30 MEQ/L (21-32); CHLORIDE LEVEL 104 MEQ/L (98-107); CHOLESTEROL LEVEL 170 MG/DL (<200); CHOLESTEROL RISK RATIO 4.857 (<5); CREATININE FOR GFR 0.74 MG/DL (0.55-1.30); GLOMERULAR FILTRATION RATE > 60.0 (>58); GLUCOSE, FASTING 136 MG/DL (70-100); HDL CHOLESTEROL 35 MG/DL (>40); LDL CHOLESTEROL 100 MG/DL (<100); NON-HDL-C 135 MG/DL; POTASSIUM SERUM 4.2 MEQ/L (3.5-5.1); SODIUM LEVEL 137 MEQ/L (136-145); TOTAL PROTEIN 7.3 GM/DL (6.4-8.2); TRIGLYCERIDES LEVEL 174 MG/DL (<150)
[2022-07-21 19:08] LABS: TOTAL 25(OH) VITAMIN D 26.5 NG/ML (30.0-100.0)
[2022-07-21 19:19] LABS: HEMOGLOBIN A1c 5.7 %
== END ==
LOC: M LAB REF 17:15
PROVIDERS: ATTEND Family Medicine Addiction Medicine
DX: Z13.228 Encounter for screening for other metabolic disorders (principal)

== ENCOUNTER 2023-10-19 14:26 | Emergency (ER) | payer OTHER, SELFPAY ==
[~2023-10-19] VITALS: Ht 152.4 cm; Wt 71.5 kg
[~2023-10-19 14:26] MED LIST changes: -GABA-283; +GABA-284
[2023-10-19 14:27] VITALS: BP 120/58; TEMP 97.7; O2SAT 98
== END 2023-10-19 17:59 | disposition left against medical advice (07) ==
LOC: M ED 14:26
DX: Z53.21 Procedure and treatment not carried out due to patient leaving prior to being seen by health care provider (principal)